=== PATIENT | male | born 1990 | race Caucasian/White ===

== ENCOUNTER 2017-01-05 16:22 | Emergency (ER) | payer OTHER ==
[~2017-01-05] VITALS: Ht 172.7 cm; Wt 117.3 kg
[~2017-01-05 16:22] MED LIST: PANT40TA2 PO
[2017-01-05 16:25] VITALS: TEMP 36.4; Ht 172.7 cm; Wt 117.3 kg
[2017-01-05] MEDS ORDERED: ZLF/100 PO (16:31)
[2017-01-05] MEDS ORDERED: LORAZEPAM 0.5 MG TAB PO STA (16:47)
[2017-01-05] MEDS ORDERED: SODIUM CHLORIDE 0.9% 1000ML 1,000 ML IV STA (16:47)
[2017-01-05 17:07] LABS: BASO % 0.2 %; BASO ABS # 0.02 K/uL (0-0.2); COMPLETE YES; EOS % 1.2 %; HEMATOCRIT 45.6 % (42-52); IG% 0.3 %; LYMPH % 23.1 %; MEAN CELL VOLUME 83.7 fL (80-100); MEAN CORPUSCULAR HEMOGLOBIN 30.6 pg (25-34); MEAN CORPUSCULAR HGB CONC 36.6 g/dl (32-36); MEAN PLATELET VOLUME 11.4 fL (7.4-10.4); MONO % 5.9 %; NEUT % 69.3 %; PLATELET COUNT 235 K/uL (130-400); RED BLOOD COUNT 5.45 M/uL (4.7-6.1); WHITE BLOOD COUNT 12.96 K/uL (4.8-10.8)
--- NOTE | 2017-01-05 17:12 | EMERGENCY ROOM VISIT NOTE ---
History First contact with patient: 16:28 Chief Complaint: DIZZY Stated Complaint: light headed, dizzy, head pressure History of Present Illness The patient is a 26 year old male who presents to the Emergency Room with complaints of lightheadedness. The patient states that he restarted Zoloft 2 weeks ago due to increasing anxiety. He has taken this medication in the past. He states he took 50 mg for 1 week and then began 100 mg daily. He states that he "does not feel like himself." He reports feeling lightheaded, dizzy, and has tingling in his hands. He reports a pressure in his face and is concerned about a dental infection. He does admit to chewing tobacco. He states that he drinks several bottles of water every day and does not believe that he could be dehydrated. He states that he has occasionally had shortness of breath but has attributed this to his anxiety. He denies having these symptoms when taking Zoloft previously. He does have a prescription for lorazepam to take as needed for anxiety, but has not used this. He denies any neck pain, headache, fevers or chest pain, nausea, vomiting or abdominal pain. Review of Systems A complete 10 point review of systems was reviewed with the patient with pertinent positives and negatives as per history of present illness. All else were negative. Past Medical/Surgical History Medical Problems: (1) Chronic knee pain (2) Chronic shoulder pain (3) Duodenitis (4) History of anxiety (5) History of duodenal ulcer (6) History of gastritis (7) History of GI bleed (8) Speech impediment Surgical Problems: (1) H/O esophagogastroduodenoscopy (2) Hx of appendectomy Family History Diabetes mellitus GRANDMOTHER Hypertension GRANDMOTHER Social History Smoking Status: Current Some Day Smoker Alcohol Use: none Drug Use: none Marital Status: single Housing Status: lives with family Occupation Status: employed Current/Historical Medications Scheduled Pantoprazole (Protonix), 40 MG PO DAILY Sertraline HCl (Sertraline HCl), 100 MG PO DAILY Scheduled PRN Lorazepam (Ativan), 0.5 MG PO DAILY PRN for Anxiety Allergies Coded Allergies: Bacitracin (Verified Allergy, Unknown, Rash, 01/05/17) Neomycin (Verified Allergy, Unknown, Rash, 01/05/17) Polymyxin B (Verified Allergy, Unknown, Rash, 01/05/17) Physical Exam Vital Signs Date Time Temp Pulse Resp B/P (MAP) Pulse Ox O2 Delivery O2 Flow Rate FiO2 01/05/17 20:19 71 18 151/96 96 Room Air 01/05/17 19:00 75 16 127/70 97 Room Air 01/05/17 17:26 64 01/05/17 17:11 58 147/66 81 131/74 75 126/77 01/05/17 16:25 36.4 81 18 151/90 96 Room Air Physical Exam VITALS: Vitals are noted on the nurse's note and reviewed by myself. Vital signs stable. GENERAL: This is a 26-year-old male, in no acute distress, nondiaphoretic, well- developed well-nourished. SKIN: The skin was without rashes. HEAD: Normocephalic atraumatic. EARS: External auditory canals clear, tympanic membranes pearly uddley without erythema or effusion bilaterally. EYES: Pupils equal round and reactive to light and accommodation. Conjunctivae without injection, sclerae without icterus. Extraocular movements intact. NOSE: Patent, turbinates without inflammation or discharge. No sinus tenderness. MOUTH: Mucous membranes moist. The left lower gums appear to be mildly inflamed. NECK: Supple without nuchal rigidity. No lymphadenopathy. HEART: Regular rate and rhythm without murmurs gallops or rubs. LUNGS: Clear to auscultation bilaterally without wheezes, rales or rhonchi. MUSCULOSKELETAL: Full range of motion throughout. Normal gait. Strength 5/5 throughout. NEURO: Patient was alert and oriented to person place and time. Normal sensation to light and sharp touch. Deep tendon reflexes 2+ throughout. No focal neurological deficits. Normal finger to nose testing. Negative Romberg and pronator drift. Medical Decision & Procedures ER Provider Diagnostic Interpretation: CHEST ONE VIEW PORTABLE FINDINGS: Lung volumes are normal. There is no pneumothorax or pleural effusion. There is no evidence of pulmonary edema. Cardiac size is normal. Mediastinal contours are normal. A 1.4 cm nodular left midlung opacity is noted. Left basilar linear opacity favors atelectasis. IMPRESSION: 1.4 cm nodular left midlung opacity. This may reflect airspace disease, artifact or a pulmonary nodule. Follow-up PA and lateral radiographs of the chest in one month are recommended to ensure resolution. MRI OF THE BRAIN WITHOUT AND WITH IV CONTRAST FINDINGS: There are no areas of restricted diffusion. No acute intracranial hemorrhage, midline shift or mass effect is present. Brain volume is normal. Ventricular system is normal. Basilar cisterns are patent. Flow-voids for the major intracranial vessels are present. There are no intracranial masses or areas of pathologic enhancement. No areas of signal abnormality are present. Orbits and sinuses are unremarkable. Calvarial signal is normal. IMPRESSION: Normal MRI of the brain. MRA OF THE INTRACRANIAL CIRCULATION WITHOUT CONTRAST FINDINGS: The bilateral M1, M2, A1 and A2 segments are patent. There is no abrupt vessel cut off. There is no intracranial aneurysm. Posterior circulation is also intact. The appearance is unchanged since prior exam. IMPRESSION: Normal MRA of the intracranial circulation. Laboratory Results 01/05/17 17:00 Red Blood Count 5.45, Mean Corpuscular Volume 83.7, Mean Corpuscular Hemoglobin 30.6, Mean Corpuscular Hemoglobin Concent 36.6, Mean Platelet Volume 11.4, Neutrophils (%) (Auto) 69.3, Lymphocytes (%) (Auto) 23.1, Monocytes (%) (Auto) 5.9, Eosinophils (%) (Auto) 1.2, Basophils (%) (Auto) 0.2, Neutrophils # (Auto) 8.97, Lymphocytes # (Auto) 3.00, Monocytes # (Auto) 0.77, Eosinophils # (Auto) 0.16, Basophils # (Auto) 0.02 01/05/17 17:00 Test 01/05/17 17:00 White Blood Count 12.96 K/uL (4.8-10.8) Red Blood Count 5.45 M/uL (4.7-6.1) Hemoglobin 16.7 g/dL (14.0-18.0) Hematocrit 45.6 % (42-52) Mean Corpuscular Volume 83.7 fL (80-100) Mean Corpuscular Hemoglobin 30.6 pg (25-34) Mean Corpuscular Hemoglobin Concent 36.6 g/dl (32-36) Platelet Count 235 K/uL (130-400) Mean Platelet Volume 11.4 fL (7.4-10.4) Neutrophils (%) (Auto) 69.3 % Lymphocytes (%) (Auto) 23.1 % Monocytes (%) (Auto) 5.9 % Eosinophils (%) (Auto) 1.2 % Basophils (%) (Auto) 0.2 % Neutrophils # (Auto) 8.97 K/uL (1.4-6.5) Lymphocytes # (Auto) 3.00 K/uL (1.2-3.4) Monocytes # (Auto) 0.77 K/uL (0.11-0.59) Eosinophils # (Auto) 0.16 K/uL (0-0.5) Basophils # (Auto) 0.02 K/uL (0-0.2) RDW Standard Deviation 37.1 fL (36.4-46.3) RDW Coefficient of Variation 12.3 % (11.5-14.5) Immature Granulocyte % (Auto) 0.3 % Immature Granulocyte # (Auto) 0.04 K/uL (0.00-0.02) D-Dimer < 190 ug/L FEU (0-500) Anion Gap 12.0 mmol/L (3-11) Est Creatinine Clear Calc Drug Dose 114.0 ml/min Estimated GFR () 94.8 Estimated GFR (Non- 81.8 BUN/Creatinine Ratio 16.6 (10-20) Calcium Level 9.4 mg/dl (8.5-10.1) Magnesium Level 2.2 mg/dl (1.8-2.4) Total Bilirubin 3.6 mg/dl (0.2-1) Direct Bilirubin 0.3 mg/dl (0-0.2) Aspartate Amino Transf (AST/SGOT) 22 U/L (15-37) Alanine Aminotransferase (ALT/SGPT) 52 U/L (12-78) Alkaline Phosphatase 68 U/L (45-117) Total Protein 7.9 gm/dl (6.4-8.2) Albumin 5.1 gm/dl (3.4-5.0) Thyroid Stimulating Hormone (TSH) 1.520 uIu/ml (0.300-4.500) Urine Opiates Screen NEG (NEG) Urine Methadone, Qualitative NEG (NEG) Urine Barbiturates NEG (NEG) Urine Phencyclidine (PCP) Level NEG (NEG) Ur Amphetamine/Methamphetamine NEG (NEG) MDMA (Ecstasy) Screen NEG (NEG) Urine Benzodiazepines Screen NEG (NEG) Urine Cocaine Metabolite NEG (NEG) Urine Marijuana (THC) POS (NEG) Medications Administered Medications (Trade) Dose Ordered Sig/Eliseo Route Start Time Stop Time Status Last Admin Dose Admin Sodium Chloride 1,000 ml @ 999 mls/hr Q1H1M STAT IV 01/05/17 16:47 01/05/17 17:47 DC 01/05/17 16:47 999 MLS/HR Lorazepam (Ativan Tab) 0.5 mg NOW STAT PO 01/05/17 16:47 01/05/17 16:49 DC 01/05/17 17:27 0.5 MG ECG Rate (beats per minute): 68 Rhythm: normal sinus Findings: no acute ischemic change, no ectopy Change: no significant change ED Course The patient was evaluated as above. Labs were drawn and IV access was obtained. Patient was medicated with 1 liter NSS and 0.5 mg lorazepam orally. Patient was reevaluated and findings were discussed. Case was discussed with Dr. Almeida and decision to order MRI/MRA was made. Discharge instructions were reviewed with the patient. The patient verbalized understanding of my assessment and treatment plan and was discharged home in good condition. Medical Decision Differential diagnosis includes adverse reaction to medication, anxiety, CVA, malignancy, infection, electrolyte abnormality, orthostatic hypotension, among others. The patient is a 26-year-old male who presents today with vague complaints of dizziness. The patient seems to be describing lightheadedness rather than true vertigo. He does state that the onset of symptoms coincides with restarting Zoloft for anxiety. Labs revealed a mild leukocytosis. No concerning anemia or electrolyte abnormality. Bilirubin is elevated at 3.6. The etiology of this is unclear. EKG showed a normal sinus rhythm, unchanged from a previous EKG. The patient's orthostatic vital signs were mildly positive. BUN was also slightly elevated. The patient may be dehydrated. The patient was also evaluated by Dr. Almeida, ED attending physician. Due to some difficulty with HINTS exam, decision was made to perform MRI and MRA. These were performed and were read by radiology with no acute findings. I'm unsure of the cause of the patient's symptoms. While he has taken Zoloft in the past, he certainly could have developed an adverse reaction to the medication. He will need close follow -up with his primary care provider for possible medication changes and further evaluation. Based on the patient's presentation and work up, I feel the patient is stable for outpatient treatment. The patient was educated to return to the emergency department for any worsening of their current condition or new/concerning symptoms. He will follow up with his PCP. Medication reconciliation: I attest that I have personally reviewed the patient 's current medication list. Blood pressure screening: Patient was found to have an elevated blood pressure and was referred to their primary care provider for recheck and further treatment. Impression Primary Impression: Dizziness Departure Information Dispostion Home / Self-Care Condition GOOD Referrals Jerel Wayne M.D. (PCP) Patient Instructions My [facility] Additional Instructions MRI of your brain was normal today. Your bilirubin level was elevated. The cause of this is unclear, but you should have it rechecked by your family doctor. Rest and stay well hydrated. Follow-up with your primary care provider within 48 hours for further evaluation and possible medication adjustments. Return to the emergency department with any new/concerning or worsening symptoms.
--- NOTE | 2017-01-05 17:14 | DIAGNOSTIC IMAGING REPORT ---
CHEST ONE VIEW PORTABLE CLINICAL HISTORY: Lightheaded. Dizzy. COMPARISON STUDY: Chest radiograph February 06, 2015. FINDINGS: Lung volumes are normal. There is no pneumothorax or pleural effusion. There is no evidence of pulmonary edema. Cardiac size is normal. Mediastinal contours are normal. A 1.4 cm nodular left midlung opacity is noted. Left basilar linear opacity favors atelectasis. IMPRESSION: 1.4 cm nodular left midlung opacity. This may reflect airspace disease, artifact or a pulmonary nodule. Follow-up PA and lateral radiographs of the chest in one month are recommended to ensure resolution. Electronically signed by: Shay Yanez M.D. 01/05/2017 5:13 PM Dictated Date/Time: 01/05/2017 5:12 PM
[2017-01-05 17:25] LABS: BUN/CREATININE RATIO 16.6 (10-20); CALCIUM 9.4 mg/dl (8.5-10.1); CREATININE 1.2 mg/dl (0.60-1.40); MAGNESIUM 2.2 mg/dl (1.8-2.4); POTASSIUM 3.8 mmol/L (3.5-5.1)
[2017-01-05 17:36] LABS: THYROID STIMULATING HORMONE 1.52 uIu/ml (0.300-4.500)
[2017-01-05 17:56] LABS: BENZODIAZEPINE, URINE NEG (NEG); COCAINE,URINE NEG (NEG); PHENCYCLIDINE, URINE NEG (NEG)
[2017-01-05] MEDS ORDERED: LORA-741 PO (17:56)
[2017-01-05] MEDS ORDERED: PANT40TA PO (17:56)
--- NOTE | 2017-01-05 19:53 | EMERGENCY ROOM VISIT NOTE ---
ED Visit Note First contact with patient: 16:28 Patient is slightly discussed with physician web production assistant and reviewed evaluation and results of far. I then performed my own bedside interview and examine the patient. Patient with atypical dizziness/lightheadedness, timing suggestive of possible medication adverse reaction, although patient was taken the medication previously without any adverse side effects. No other symptoms to suggest occult infectious process, no recent trauma, labs otherwise reassuring, patient with no other risk factors for heart disease, although there is some family history according to significant other bedside. Patient with nonfocal bedside neuro exam, however had difficulty with hints exam. Given atypical symptoms and equivocal hints exam with worsening sense of lightheadedness during testing , discussed with physician web production assistant neuro imaging.
[2017-01-05] MEDS ORDERED: GADAVIST IV PRN (20:00)
--- NOTE | 2017-01-05 20:07 | DIAGNOSTIC IMAGING REPORT ---
MRI OF THE BRAIN WITHOUT AND WITH IV CONTRAST CLINICAL HISTORY: Head pressure. Dizziness. COMPARISON STUDY: Head CT May 26, 2015. TECHNIQUE: Utilizing a 1.5 Maida magnet and dedicated coil, multiplanar, multiecho imaging of the brain was performed pre and postcontrast administration. IV administration of 11 mL of Gadavist contrast was uneventful. FINDINGS: There are no areas of restricted diffusion. No acute intracranial hemorrhage, midline shift or mass effect is present. Brain volume is normal. Ventricular system is normal. Basilar cisterns are patent. Flow-voids for the major intracranial vessels are present. There are no intracranial masses or areas of pathologic enhancement. No areas of signal abnormality are present. Orbits and sinuses are unremarkable. Calvarial signal is normal. IMPRESSION: Normal MRI of the brain. Electronically signed by: Shay Yanez M.D. 01/05/2017 8:06 PM Dictated Date/Time: 01/05/2017 8:02 PM
--- NOTE | 2017-01-05 20:12 | DIAGNOSTIC IMAGING REPORT ---
MRA OF THE INTRACRANIAL CIRCULATION WITHOUT CONTRAST CLINICAL HISTORY: Head pressure, dizziness. COMPARISON STUDY: MRA of the intracranial circulation June 01, 2015. TECHNIQUE: Utilizing a 1.5 Maida magnet and 3-D [id number] technique, unenhanced MRA of the intracranial circulation was obtained. FINDINGS: The bilateral M1, M2, A1 and A2 segments are patent. There is no abrupt vessel cut off. There is no intracranial aneurysm. Posterior circulation is also intact. The appearance is unchanged since prior exam. IMPRESSION: Normal MRA of the intracranial circulation. Electronically signed by: Shay Yanez M.D. 01/05/2017 8:11 PM Dictated Date/Time: 01/05/2017 8:09 PM
[2017-01-05 20:19] VITALS: BP 151/96; PULSE 71; O2SAT 96
== END 2017-01-05 20:33 | disposition home or self-care (01) ==
LOC: C.EDB 16:24 → C.EDC 20:33
DX: R42 Dizziness and giddiness (principal); G89.29 Other chronic pain; F41.9 Anxiety disorder, unspecified; K29.70 Gastritis, unspecified, without bleeding; K26.9 Duodenal ulcer, unspecified as acute or chronic, without hemorrhage or perforation; Z83.3 Family history of diabetes mellitus; Z82.49 Family history of ischemic heart disease and other diseases of the circulatory system; F17.210 Nicotine dependence, cigarettes, uncomplicated; Z79.899 Other long term (current) drug therapy

== ENCOUNTER 2017-02-07 22:16 | Emergency (ER) | payer OTHER ==
[~2017-02-07] VITALS: Ht 172.7 cm; Wt 117.6 kg
[~2017-02-07 22:16] MED LIST changes: +LORA-741 PO; +PANT40TA PO; -PANT40TA2 PO; +ZLF/100 PO
[2017-02-07 22:19] VITALS: BP 155/104; TEMP 36.7; O2SAT 99; Ht 172.7 cm; Wt 117.6 kg
[2017-02-07 22:25] VITALS: O2SAT 97
[2017-02-07 22:35] VITALS: PULSE 84
[2017-02-07] MEDS ORDERED: SERT50TA PO (22:40)
[2017-02-07 22:49] LABS: BASO % 0.3 %; BASO ABS # 0.03 K/uL (0-0.2); COMPLETE YES; HEMATOCRIT 45.8 % (42-52); IG% 0.4 %; LYMPH % 34.8 %; LYMPH ABS # 4.06 K/uL (1.2-3.4); MEAN CELL VOLUME 84.3 fL (80-100); MEAN CORPUSCULAR HGB CONC 35.6 g/dl (32-36); MEAN PLATELET VOLUME 11.5 fL (7.4-10.4); MONO % 6.3 %; NEUT % 57.2 %; PLATELET COUNT 226 K/uL (130-400); RED BLOOD COUNT 5.43 M/uL (4.7-6.1); WHITE BLOOD COUNT 11.67 K/uL (4.8-10.8)
[2017-02-07 23:03] LABS: BLOOD UREA NITROGEN 16 mg/dl (7-18); BUN/CREATININE RATIO 16.2 (10-20); CALCIUM 9.7 mg/dl (8.5-10.1); CARBON DIOXIDE 24 mmol/L (21-32); CHLORIDE 108 mmol/L (98-107); GLUCOSE 89 mg/dl (70-99); SODIUM 141 mmol/L (136-145)
[2017-02-07 23:17] LABS: CKMB/CK RATIO 0.3 (0-3.0); POTASSIUM 3.9 mmol/L (3.5-5.1)
[2017-02-08] MEDS ORDERED: KETOROLAC TROMETHAMINE 30 MG/ML VIAL IV STA (00:03)
--- NOTE | 2017-02-08 01:30 | EMERGENCY ROOM VISIT NOTE ---
History Report prepared by Scribe: Rakel Crain Under the Supervision of: Dr. Robbin Conner D.O. First contact with patient: 22:26 Chief Complaint: CHEST PAIN Stated Complaint: CHEST PAIN History of Present Illness The patient is a 26 year old male who presents to the Emergency Room with complaints of persistent chest pain for the past 2 months. He admits to increasing anxiety for the past 4 to 6 weeks. He states he thought his chest pain was related to his anxiety, but even though he is on medication for the anxiety, his pain has persisted. He rates his discomfort as a 7/10. Deep inspiration and exertion worsens his discomfort. The patient denies any hemoptysis, recent travel or recent surgeries. He does use chew tobacco every day and states he smokes when he does not have chew. He denies any previous cardiac history or family history of NE's under the age of 55. The patient denies any headache, change in vision, fevers, shortness of breath, nausea, vomiting, diarrhea, pain with urination, and melena. The patient does note he was seen here in the ED approximately 2 weeks ago for the same symptoms. His X- Ray showed a lung nodule, so he called his doctors office, and a CT scan was ordered. He states he has not heard back yet about the results of the CT scan. 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 A total of 10 systems reviewed and were otherwise negative. Past Medical & Surgical Medical Problems: (1) Chronic knee pain (2) Chronic shoulder pain (3) Duodenitis (4) History of anxiety (5) History of duodenal ulcer (6) History of gastritis (7) History of GI bleed (8) Speech impediment Surgical Problems: (1) H/O esophagogastroduodenoscopy (2) Hx of appendectomy Family History Diabetes mellitus GRANDMOTHER Hypertension GRANDMOTHER Social History Smoking Status: Current Some Day Smoker Alcohol Use: none Drug Use: none Marital Status: single Housing Status: lives with family Occupation Status: employed Current/Historical Medications Scheduled Pantoprazole (Protonix), 40 MG PO DAILY Sertraline (Zoloft), 50 MG PO DAILY Scheduled PRN Lorazepam (Ativan), 0.5 MG PO DAILY PRN for Anxiety Allergies Coded Allergies: Bacitracin (Verified Allergy, Unknown, Rash, 01/05/17) Neomycin (Verified Allergy, Unknown, Rash, 01/05/17) Polymyxin B (Verified Allergy, Unknown, Rash, 01/05/17) Physical Exam Vital Signs Date Time Temp Pulse Resp B/P (MAP) Pulse Ox O2 Delivery O2 Flow Rate FiO2 02/07/17 22:38 97 Room Air 02/07/17 22:35 84 02/07/17 22:25 97 Room Air 02/07/17 22:19 36.7 77 20 155/104 99 Room Air Physical Exam GENERAL: Patient is sitting up in bed, alert, well appearing, well nourished, no distress, non-toxic EYE EXAM: normal conjunctiva OROPHARYNX: no exudate, no erythema, lips, buccal mucosa, and tongue normal and mucous membranes are moist NECK: supple, no nuchal rigidity, no adenopathy, non-tender LUNGS: Clear to auscultation. Normal chest wall mechanics HEART: no murmurs, S1 normal and S2 normal CHEST: Acute reproducible anterior chest wall pain. ABDOMEN: abdomen soft, non-tender, normo-active bowel sounds, no masses, no rebound or guarding. BACK: Back is symmetrical on inspection and there is no deformity, no midline tenderness, no CVA tenderness. SKIN: no rashes and no bruising UPPER EXTREMITIES: Radial pulses equal bilaterally. Upper extremities are grossly normal. LOWER EXTREMITIES: Calves are equal bilaterally. No pitting edema. NEURO EXAM: Normal sensorium, cranial nerves II-XII grossly intact, normal speech, no gross weakness of arms, no gross weakness of legs. Gross sensation intact. Medical Decision & Procedures ER Provider Diagnostic Interpretation: Radiology results as stated below per my review and interpretation: CHEST X-RAY, PORTABLE, 1 VIEW No focal infiltrate, no pneumothorax and normal cardiac silhouette. Laboratory Results 02/07/17 22:30 Red Blood Count 5.43, Mean Corpuscular Volume 84.3, Mean Corpuscular Hemoglobin 30.0, Mean Corpuscular Hemoglobin Concent 35.6, Mean Platelet Volume 11.5, Neutrophils (%) (Auto) 57.2, Lymphocytes (%) (Auto) 34.8, Monocytes (%) (Auto) 6.3, Eosinophils (%) (Auto) 1.0, Basophils (%) (Auto) 0.3, Neutrophils # (Auto) 6.68, Lymphocytes # (Auto) 4.06, Monocytes # (Auto) 0.73, Eosinophils # (Auto) 0.12, Basophils # (Auto) 0.03 02/07/17 22:30 Test 02/07/17 22:30 White Blood Count 11.67 K/uL (4.8-10.8) Red Blood Count 5.43 M/uL (4.7-6.1) Hemoglobin 16.3 g/dL (14.0-18.0) Hematocrit 45.8 % (42-52) Mean Corpuscular Volume 84.3 fL (80-100) Mean Corpuscular Hemoglobin 30.0 pg (25-34) Mean Corpuscular Hemoglobin Concent 35.6 g/dl (32-36) Platelet Count 226 K/uL (130-400) Mean Platelet Volume 11.5 fL (7.4-10.4) Neutrophils (%) (Auto) 57.2 % Lymphocytes (%) (Auto) 34.8 % Monocytes (%) (Auto) 6.3 % Eosinophils (%) (Auto) 1.0 % Basophils (%) (Auto) 0.3 % Neutrophils # (Auto) 6.68 K/uL (1.4-6.5) Lymphocytes # (Auto) 4.06 K/uL (1.2-3.4) Monocytes # (Auto) 0.73 K/uL (0.11-0.59) Eosinophils # (Auto) 0.12 K/uL (0-0.5) Basophils # (Auto) 0.03 K/uL (0-0.2) RDW Standard Deviation 37.9 fL (36.4-46.3) RDW Coefficient of Variation 12.5 % (11.5-14.5) Immature Granulocyte % (Auto) 0.4 % Immature Granulocyte # (Auto) 0.05 K/uL (0.00-0.02) D-Dimer < 190 ug/L FEU (0-500) Anion Gap 9.0 mmol/L (3-11) Est Creatinine Clear Calc Drug Dose 137.0 ml/min Estimated GFR () 118.2 Estimated GFR (Non- 102.0 BUN/Creatinine Ratio 16.2 (10-20) Calcium Level 9.7 mg/dl (8.5-10.1) Total Creatine Kinase 172 U/L (39-308) Creatine Kinase MB 0.6 ng/ml (0.5-3.6) Creatine Kinase MB Ratio 0.3 (0-3.0) Troponin I < 0.015 ng/ml (0-0.045) Chemistry Specimen Hemolysis Laboratory results per my review. Medications Administered Medications (Trade) Dose Ordered Sig/Eliseo Route Start Time Stop Time Status Last Admin Dose Admin Ketorolac Tromethamine (Toradol Inj) 30 mg NOW STAT IV 02/08/17 00:03 02/08/17 00:04 DC 02/08/17 00:03 30 MG ECG Indication: chest pain Rate (beats per minute): 75 Rhythm: sinus rhythm Findings: no ectopy, other (normal intervals) ED Course ED COURSE: Vital signs were reviewed and showed the patient is hypertensive. The patients medical record was reviewed The above diagnostic studies were performed and reviewed. ED treatments and interventions as stated above. 2232: The patient was evaluated in room A3. A complete history and physical examination was performed. 0000: Upon reevaluation, the patient is feeling better. I discussed my findings with the patient and he understands and agrees with the treatment plan. 0003: Toradol 30 mg IV. Based on the patients age, coexisting illnesses, exam and lab findings the decision to treat as an outpatient was made. The patient remained stable while under my care. The patient appeared well at the time of discharge. [The patient will be evaluated for further management.] Medical Decision Medication Reconciliation: I attest that I have personally reviewed the patient' s current medication list. Blood pressure screening: Patient was found to have an elevated blood pressure and was referred to their primary doctor for recheck and further treatment. Differential diagnoses includes but is not limited to acute coronary syndrome, myocardial infarction, pericarditis, pulmonary embolus, aortic dissection, pneumonia, pneumothorax, musculoskeletal, shingles, esophageal. Patient is a 26-year-old male who presents the ER for chest pain which has been present since late October early May been fairly persistent. It is worse with deep breath. Exertion slightly improves the pain. Patient has no PE risk factors with the exception of travel. Denies any history of hypertension, hyperlipidemia, diabetes, some deafness family and age or CAD. EKG was unremarkable. Troponin was negative with chest pain greater than 8 hours. D- dimer was negative. X-ray shows no acute pathology. His pain is clearly pleuritic in nature. Patient was given Toradol and recommended to take Motrin/ Tylenol as needed and follow-up with his PCP. Discussed with Pt concerning signs and symptoms to watch out for. Pt was instructed to follow up with their PCP and discussed with the patient their option to return to the ED at anytime for persistent or worsening symptoms. The appropriate anticipatory guidance and out-patient management, including indications for return to the emergency department, were explained at length to the patient and understood. Impression Primary Impression: Precordial chest pain Scribe Attestation The scribe's documentation has been prepared under my direction and personally reviewed by me in its entirety. I confirm that the note above accurately reflects all work, treatment, procedures, and medical decision making performed by me. Departure Information Dispostion Home / Self-Care Referrals No Doctor, Assigned (PCP) Patient Instructions Chest Pain - [facility], My [facility] Additional Instructions Please follow up with your primary care doctor with in the next 24 hours. Any worsening of your symptoms, please return to the ED immediately. This includes new or worsening chest pain, shortness breath, passing out, coughing up blood, or any other concerning signs or symptoms from your standpoint. Please take Motrin or Tylenol as needed for your pain.
--- NOTE | 2017-02-08 05:44 | DIAGNOSTIC IMAGING REPORT ---
CHEST ONE VIEW PORTABLE CLINICAL HISTORY: Chest Pain pain COMPARISON STUDY: 01/05/2017 FINDINGS: The bones soft tissues and hemidiaphragms are normal. The cardiomediastinal silhouette is normal. The lungs are clear. The pulmonary vasculature is normal. IMPRESSION: Negative chest. The nodular density previously described left midlung appears to have resolved The above report was generated using voice recognition software. It may contain grammatical, syntax or spelling errors. Electronically signed by: Ivan Broderick M.D. 02/08/2017 5:42 AM Dictated Date/Time: 02/08/2017 5:42 AM
== END 2017-02-08 00:20 | disposition home or self-care (01) ==
LOC: C.EDB 22:17 → C.EDA 02-08 00:20
DX: R07.2 Precordial pain (principal); F41.9 Anxiety disorder, unspecified; F17.220 Nicotine dependence, chewing tobacco, uncomplicated; F17.210 Nicotine dependence, cigarettes, uncomplicated; G89.29 Other chronic pain; M25.569 Pain in unspecified knee; M25.519 Pain in unspecified shoulder; R47.9 Unspecified speech disturbances; Z83.3 Family history of diabetes mellitus; Z82.49 Family history of ischemic heart disease and other diseases of the circulatory system; Z79.899 Other long term (current) drug therapy; R03.0 Elevated blood-pressure reading, without diagnosis of hypertension

== ENCOUNTER 2017-09-01 13:04 | Emergency (ER) | payer OTHER ==
[~2017-09-01 13:04] MED LIST changes: +SERT50TA PO; -ZLF/100 PO
== END 2017-09-01 13:23 | disposition left against medical advice (07) ==
LOC: C.EDB 13:05
DX: Z53.21 Procedure and treatment not carried out due to patient leaving prior to being seen by health care provider (principal)

== ENCOUNTER 2017-09-01 16:05 | Inpatient (IN) | payer OTHER ==
[~2017-09-01] VITALS: Ht 172.7 cm; Wt 104.6 kg
--- NOTE | 2017-09-01 16:49 | DIAGNOSTIC IMAGING REPORT ---
CHEST ONE VIEW PORTABLE CLINICAL HISTORY: Mood Disorder COMPARISON STUDY: 02/07/2017 FINDINGS: The cardiac and mediastinal contours are normal. There is no evidence of focal pulmonary consolidation. There is no evidence of failure. No pleural effusions are visualized.[ IMPRESSION: No active disease in the chest. Electronically signed by: Moy Stinson M.D. 09/01/2017 4:48 PM Dictated Date/Time: 09/01/2017 4:48 PM
[2017-09-01 16:55] LABS: BASO % 0.1 %; BASO ABS # 0.01 K/uL (0-0.2); EOS % 0.7 %; EOS ABS # 0.07 K/uL (0-0.5); HEMATOCRIT 47.5 % (42-52); HEMOGLOBIN 17.2 g/dL (14.0-18.0); IG# 0.03 K/uL (0.00-0.02); LYMPH % 22.7 %; LYMPH ABS # 2.23 K/uL (1.2-3.4); MEAN CELL VOLUME 85.4 fL (80-100); MEAN CORPUSCULAR HEMOGLOBIN 30.9 pg (25-34); MEAN CORPUSCULAR HGB CONC 36.2 g/dl (32-36); MEAN PLATELET VOLUME 11.6 fL (7.4-10.4); MONO % 4.8 %; MONO ABS # 0.47 K/uL (0.11-0.59); NEUT % 71.4 %; NEUT ABS # 7.03 K/uL (1.4-6.5); PLATELET COUNT 200 K/uL (130-400); RED CELL DISTRIBUTION WIDTH CV 12.5 % (11.5-14.5); RED CELL DISTRIBUTION WIDTH SD 38.8 fL (36.4-46.3); WHITE BLOOD COUNT 9.84 K/uL (4.8-10.8)
[2017-09-01 17:17] LABS: ALBUMIN 4.8 gm/dl (3.4-5.0); ALT/SGPT 41 U/L (12-78); BLOOD UREA NITROGEN 12 mg/dl (7-18); CALCIUM 9.3 mg/dl (8.5-10.1); CARBON DIOXIDE 23 mmol/L (21-32); CREATININE 0.97 mg/dl (0.60-1.40); GLUCOSE 89 mg/dl (70-99); POTASSIUM 3.5 mmol/L (3.5-5.1); SODIUM 139 mmol/L (136-145)
[2017-09-01 17:28] LABS: ALKALINE PHOSPHATASE 66 U/L (45-117); AST/SGOT 17 U/L (15-37); TOTAL PROTEIN 8.1 gm/dl (6.4-8.2)
--- NOTE | 2017-09-01 20:19 | EMERGENCY ROOM VISIT NOTE ---
History Report prepared by Keiko: Elpidio Grant Under the Supervision of: Dr. Robbin Conner D.O. First contact with patient: 16:16 Chief Complaint: MENTAL HEALTH EVALUATION Stated Complaint: MHID History of Present Illness The patient is a 27 year old male who presents to the Emergency Room with complaints of constant suicidal ideation beginning " a long time" ago. He has a history of anxiety, depression and PTSD. He is not on any psychiatric medication currently, but [facility] The patient arrived at the ED earlier today for similar symptoms, but eventually left due to a long wait and went to the [facility]. The [facility] then sent the patient back to the ED via ambulance. The patient reports that he has felt very easily angered recently, and has had thoughts of self harm. He has no specific plan to harm himself or harm others, though he states that he would not admit if he had a plan, and "would just go do it". He feels that his symptoms are coming from stress at work, and stress at home. The patient notes that he lost his job recently. He is afraid people are going to take his guns as well. The patient states "I don't want to be around anymore". He states "I don't have anything to live for, other than my and kid". He states "I appreciate life , but sometimes I have those moments where I wonder why I'm here". The patient denies visual or auditory hallucinations. He states that he has had racing thoughts recently, and has an odd compulsion to speak them out loud to himself. He has a history of chronic intermittent chest "tightness", and states that it has been worked up extensively, but states that it has been unchanged recently. The patient denies any abdominal pain, back pain, or headache. Source of History: patient Onset: "a long time" ago Quality: other (suicidal ideation) Timing: constant Associated Symptoms: No headache, No abdominal pain, No back pain Review of Systems See HPI for pertinent positives & negatives. A total of 10 systems reviewed and were otherwise negative. Past Medical & Surgical Medical Problems: (1) Chronic knee pain (2) Chronic shoulder pain (3) Duodenitis (4) History of anxiety (5) History of duodenal ulcer (6) History of gastritis (7) History of GI bleed (8) Speech impediment Surgical Problems: (1) H/O esophagogastroduodenoscopy (2) Hx of appendectomy Family History Diabetes mellitus GRANDMOTHER Hypertension GRANDMOTHER Social History Smoking Status: Current Some Day Smoker Alcohol Use: none Drug Use: none Marital Status: single Housing Status: lives with family Occupation Status: employed Current/Historical Medications No Active Prescriptions or Reported Meds Allergies Coded Allergies: Bacitracin (Verified Allergy, Unknown, Rash, 09/01/17) Neomycin (Verified Allergy, Unknown, Rash, 09/01/17) Polymyxin B (Verified Allergy, Unknown, Rash, 09/01/17) Physical Exam Vital Signs Date Time Temp Pulse Resp B/P (MAP) Pulse Ox O2 Delivery O2 Flow Rate FiO2 09/02/17 00:46 97 20 167/92 98 Room Air 09/02/17 00:12 117 18 174/140 98 Room Air 09/01/17 20:19 79 20 99 Room Air 09/01/17 16:35 36.8 82 165/107 98 Room Air Physical Exam GENERAL: Sitting up in bed, alert, no distress, non-toxic, anxious EYE EXAM: normal conjunctiva. OROPHARYNX: no exudate, no erythema, lips, buccal mucosa, and tongue normal and mucous membranes are moist NECK: supple, no nuchal rigidity, no adenopathy, non-tender LUNGS: Clear to auscultation. Normal chest wall mechanics HEART: no murmurs, S1 normal and S2 normal ABDOMEN: abdomen soft, non-tender, normo-active bowel sounds, no masses, no rebound or guarding. BACK: Back is symmetrical on inspection and there is no deformity, no midline tenderness, no CVA tenderness. SKIN: no rashes and no bruising UPPER EXTREMITIES: upper extremities are grossly normal. LOWER EXTREMITIES: Calves are equal bilaterally. NEURO EXAM: Normal sensorium, cranial nerves II-XII grossly intact, normal speech, no gross weakness of arms, no gross weakness of legs. PSYCH: Admits to suicidal thoughts. Tangential and racing thoughts. Admits that he would never admit to a plan of killing himself. Medical Decision & Procedures ER Provider Diagnostic Interpretation: Radiology results as stated below per my review and the radiologist's interpretation: CHEST ONE VIEW PORTABLE FINDINGS: The cardiac and mediastinal contours are normal. There is no evidence of focal pulmonary consolidation. There is no evidence of failure. No pleural effusions are visualized.[ IMPRESSION: No active disease in the chest. Electronically signed by: Moy Stinson M.D. 09/01/2017 4:48 PM Laboratory Results 09/01/17 16:44 Red Blood Count 5.56, Mean Corpuscular Volume 85.4, Mean Corpuscular Hemoglobin 30.9, Mean Corpuscular Hemoglobin Concent 36.2, Mean Platelet Volume 11.6, Neutrophils (%) (Auto) 71.4, Lymphocytes (%) (Auto) 22.7, Monocytes (%) (Auto) 4.8, Eosinophils (%) (Auto) 0.7, Basophils (%) (Auto) 0.1, Neutrophils # (Auto) 7.03, Lymphocytes # (Auto) 2.23, Monocytes # (Auto) 0.47, Eosinophils # (Auto) 0.07, Basophils # (Auto) 0.01 09/01/17 16:44 Test 09/01/17 16:40 09/01/17 16:44 Urine Color YELLOW Urine Appearance CLEAR (CLEAR) Urine pH 5.0 (4.5-7.5) Urine Specific [place] 1.025 (1.000-1.030) Urine Protein TRACE (NEG) Urine Glucose (UA) NEG (NEG) Urine Ketones NEG (NEG) Urine Occult Blood NEG (NEG) Urine Nitrite NEG (NEG) Urine Bilirubin NEG (NEG) Urine Urobilinogen NEG (NEG) Urine Leukocyte Esterase NEG (NEG) Urine RBC 0-4 /hpf (0-4) Urine WBC 1-5 /hpf (0-5) Urine Epithelial Cells >30 /lpf (0-5) Urine Bacteria NEG (NEG) Urine Mucus PRESENT (NONE PRSENT) Urine Opiates Screen NEG (NEG) Urine Methadone, Qualitative NEG (NEG) Urine Barbiturates NEG (NEG) Urine Phencyclidine (PCP) Level NEG (NEG) Ur Amphetamine/Methamphetamine NEG (NEG) MDMA (Ecstasy) Screen NEG (NEG) Urine Benzodiazepines Screen NEG (NEG) Urine Cocaine Metabolite NEG (NEG) Urine Marijuana (THC) POS (NEG) White Blood Count 9.84 K/uL (4.8-10.8) Red Blood Count 5.56 M/uL (4.7-6.1) Hemoglobin 17.2 g/dL (14.0-18.0) Hematocrit 47.5 % (42-52) Mean Corpuscular Volume 85.4 fL (80-100) Mean Corpuscular Hemoglobin 30.9 pg (25-34) Mean Corpuscular Hemoglobin Concent 36.2 g/dl (32-36) Platelet Count 200 K/uL (130-400) Mean Platelet Volume 11.6 fL (7.4-10.4) Neutrophils (%) (Auto) 71.4 % Lymphocytes (%) (Auto) 22.7 % Monocytes (%) (Auto) 4.8 % Eosinophils (%) (Auto) 0.7 % Basophils (%) (Auto) 0.1 % Neutrophils # (Auto) 7.03 K/uL (1.4-6.5) Lymphocytes # (Auto) 2.23 K/uL (1.2-3.4) Monocytes # (Auto) 0.47 K/uL (0.11-0.59) Eosinophils # (Auto) 0.07 K/uL (0-0.5) Basophils # (Auto) 0.01 K/uL (0-0.2) RDW Standard Deviation 38.8 fL (36.4-46.3) RDW Coefficient of Variation 12.5 % (11.5-14.5) Immature Granulocyte % (Auto) 0.3 % Immature Granulocyte # (Auto) 0.03 K/uL (0.00-0.02) Anion Gap 9.0 mmol/L (3-11) Est Creatinine Clear Calc Drug Dose 138.3 ml/min Estimated GFR () 121.8 Estimated GFR (Non- 105.1 BUN/Creatinine Ratio 12.0 (10-20) Calcium Level 9.3 mg/dl (8.5-10.1) Total Bilirubin 2.6 mg/dl (0.2-1) Direct Bilirubin 0.4 mg/dl (0-0.2) Aspartate Amino Transf (AST/SGOT) 17 U/L (15-37) Alanine Aminotransferase (ALT/SGPT) 41 U/L (12-78) Alkaline Phosphatase 66 U/L (45-117) Troponin I < 0.015 ng/ml (0-0.045) Total Protein 8.1 gm/dl (6.4-8.2) Albumin 4.8 gm/dl (3.4-5.0) Thyroid Stimulating Hormone (TSH) 2.170 uIu/ml (0.300-4.500) Ethyl Alcohol mg/dL < 3.0 mg/dl (0-3) Laboratory results per my review. Medications Administered Medications (Trade) Dose Ordered Sig/Eliseo Route Start Time Stop Time Status Last Admin Dose Admin Lorazepam (Ativan Tab) 0.5 mg NOW STAT SL 09/01/17 23:59 09/02/17 00:01 DC 09/02/17 00:11 0.5 MG ECG Indication: chest pain ((chronic)) Rate (beats per minute): 81 Rhythm: sinus rhythm Findings: no ectopy, other (Normal axis. ) ED Course ED COURSE: Vital signs were reviewed and showed hypertension The patients medical record was reviewed The above diagnostic studies were performed and reviewed. ED treatments and interventions as stated above. 1617: The patient was evaluated in room A7. A complete history and physical examination was performed. 1834: The patient has become agitated. [facility] will evaluate the patient. 0: I had a long conversation with the patient and updated him on his test results. He is medically cleared. 1950: I signed the 302 petitioning statement. A bedsearch is underway. 0026: Upon reevaluation, the patient is resting. I discussed my findings with the patient and he understands and agrees with the treatment plan. Based on the patients age, coexisting illnesses, exam and lab findings the decision to treat as an inpatient was made. The patient remained stable during his stay. The patient will be evaluated by [address] [place] [address] for further management. Medical Decision Differential diagnosis: Etiologies such as mood disorder, infection, hypoglycemia, electrolyte abnormalities, cardiac sources, intracerebral event, toxicologic, neurologic, as well as others were entertained. Patient is a 27-year-old male who presents to ER for suicidal thoughts associated with racing thoughts and on exam he appears to be tangential. He does admit that if he had a plan to kill himself he would never tell anyone else about this. CBC all BMP, LFTs, troponin and TSH was normal. Bilirubin was elevated but consistent with previous. Tox positive for marijuana. UA was negative. Chest x-ray was negative along with an unremarkable EKG with chest pain that has been present for the past several months and is unchanged. Has been worked up multiple times before in the past. I do not believe that this is cardiac based on history of present illness and work up. 302 was petitioned and signed as the patient did not want to come in on his own after he was evaluated by Nora myself felt uncomfortable discharging him with his statements. He was hypertensive. He was extremely worked up. He was given Ativan and this all improved. Patient was evaluated by 3 S. and will be admitted on a 302 for SI. Medication Reconcilliation Current Medication List: was personally reviewed by me Blood Pressure Screening Patient's blood pressure: Elevated blood pressure Blood pressure disposition: Referred to PCP Impression Primary Impression: Mood disorder Additional Impression: Suicidal thoughts Scribe Attestation The scribe's documentation has been prepared under my direction and personally reviewed by me in its entirety. I confirm that the note above accurately reflects all work, treatment, procedures, and medical decision making performed by me. Departure Information Dispostion Mental [facility] (-[facility]) Prescriptions No Active Prescriptions or Reported Meds Referrals Jerel Wayne M.D. (PCP) Patient Instructions My [facility] Problem Qualifiers
[2017-09-01] MEDS ORDERED: LORAZEPAM 0.5 MG TAB SL STA (23:59)
[2017-09-02] MEDS ORDERED: NURSING VERBAL MED ORDER ONE (01:30)
[2017-09-02 02:12] VITALS: O2SAT 100
[2017-09-02] MEDS ORDERED: hydrOXYzine HCL 25 MG TAB ONE (02:42)
[2017-09-02] MEDS ORDERED: SODIUM CHLORIDE 0.65% NA SOLN 45 ML (OCEAN) PRN (03:00)
[2017-09-02] MEDS ORDERED: MAGNESIUM HYDROXIDE SUSP 30 ML UDC PO PRN (03:00)
[2017-09-02] MEDS ORDERED: BISMUTH SUBSALICYLATE PER ML OMNICELL CHARGE PO PRN (03:00)
[2017-09-02] MEDS ORDERED: ACETAMINOPHEN 325 MG TAB PO PRN (03:00)
[2017-09-02] MEDS ORDERED: ALUMINUM/MAGNESIUM SUSP 30 ML UDC PO PRN (03:00)
[2017-09-02 06:34] VITALS: BP 152/88; PULSE 80; TEMP 36.8; Ht 172.7 cm; Wt 104.6 kg
[2017-09-02 07:00] VITALS: BP_SYST 125; BP_SYST 129; BP_DIAS 81; BP_DIAS 86; PULSE 77; PULSE 78; TEMP 36.8
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
[2017-09-02] MEDS ORDERED: ESCITALOPRAM OXALATE 10 MG TAB PO ONE (12:00)
[2017-09-02] MEDS: hydrOXYzine HCL 25 MG TAB PO PRN (21:48)
[2017-09-03 06:58] VITALS: BP_SYST 127; BP_SYST 129; BP_DIAS 76; BP_DIAS 85; PULSE 64; PULSE 71; TEMP 36.8
[2017-09-03] MEDS: ESCITALOPRAM OXALATE 10 MG TAB PO SCH (10:03)
--- NOTE | 2017-09-03 11:51 | Psychiatric Progress Notes ---
Progress Note Date of Service Sep 03, 2017. Interval History Brandan Melendez is a 27-year-old male admitted involuntarily on Sep 02, 2017 at 01 :34 after presenting to the emergency department for treatment of severe depression, anger and with suicidal ideation. He presented twice to the ER, the first time walking out before being seen, the [facility]. Chief Complaint "Great, when I vented to that ER doc yesterday, I felt great, it was a weight off". Subjective Patient was seen & assessed interval progress reviewed with Nursing. Staff report he was angry about hospitalization/302 yesterday, met with the unit nursing information systems coordinator last evening for an extended period of time to discuss his complaints, and then had a visit with his , which she said went well. They have a family meeting scheduled for this afternoon, which he had initially stated would not be productive, but later agreed to. He attended community meeting and rated his mood an 8 out of 10. 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 Today he was seen with Kevin Gilman, MS3, with his permission. He says that although he doesn't think he needs to be here, and feels that he was "betrayed" by the [facility], does think he is benefiting from treatment, stating "I know I need help." He has been going to groups, and has found them helpful, but continues to state that no one here can truly understand him, as they have not been in his position. He feels people take him too literally, and that he cannot really be himself here, as he can't talk the way that he would to his best friends. He says he had a good visit with his last night, and is hoping that he can save his marriage. He has a meeting with her today, and says he wants to be "transparent" and talk about their issues, but at the same time feels "it's none of your business." He wants to know how soon he can be discharged, as he feels "trapped" here, and thinks that he can't work on his marriage "from a pay phone." He says his mood is "great," but admits his anxiety is "through the roof." Denies suicidal thoughts. Sleep Information Total Hours of Sleep: 7.50 Meal Information Percent of Breakfast Consumed: 100 Percent of Lunch Consumed: 70 Percent of Dinner Consumed: 100 Mental Status Exam During interview pt is: alert and oriented, cooperative Appearance: appropriately dressed, appropriately groomed Eye contact is: good Motor behavior is: steady gait & station, no abnormal motor movements Speech: normal in rate, rhythm & volume Affect: anxious Mood is: anxious Thought process: goal directed Thought content: reality based without delusions Suicidal thought are: denied Homicidal thoughts are: denied Hallucinations: denies auditory, denies visual Cognition: memory grossly intact, attention grossly intact, language grossly intact Intelligence estimated to be: average Insight: limited Judgement: limited Impression 27-year-old man admitted on a 302 involuntary commitment after presenting with depression, anger and suicidal statements. He is angry about being here, but is going to groups, and admits to long-standing depression and anxiety for at least the last 5 years. He was agreeable to a second trial of an SSRI and was started on escitalopram on admission, which was increased to 10 mg today. He initially refused family meeting, stating that his already told him that the marriage is over, but then agreed and one is scheduled for this afternoon. He will [facility]. He is here involuntarily but does not meet criteria for a 303. We will continue to gather information toward the need for further inpatient treatment. At this time however, the patient requires inpatient mental health treatment due to the severity of his condition and the risk for self-harm if discharged. Plan (1) Major depressive disorder, recurrent severe without psychotic features 09/02 -Restart Lexapro 5 mg today increasing to 10 mg tomorrow - Recommend a family meeting which the patient is currently refusing - The patient is here on a 302. Continue to gather information toward the need for hospitalization - Obtain supplemental information - [facility] - Assist the patient to learn and utilize healthy coping strategies - Encourage exercise 09/03 - - Increase her citalopram to 10 mg daily, and have family meeting with his . Ar[facility] aftercare at the [facility]. (2) PTSD (post-traumatic stress disorder) 09/02 - Is on 100% disability from the for this diagnosis - [facility] the [facility] - Medications as above (3) Tobacco use disorder 09/02 - Patient chews snuff but declines the offer of a nicotine patch or nicotine gum Discharge / Aftercare Planning Primary Care Physician: Name: did not say Therapist: Name: None Executive Assistant: Name: none Visit Code E&M Code: 52825 Inventory Assets Strengths: Self-determination, love of family Needs: To learn additional healthy coping strategies Risk Factors Assessment Male: Yes : Yes /single/: No Higher / Fall in social status: No Health problems: No Mental Health Diagnoses: Yes Substance use disorders: No Previous attempt: No Previous psychiatric stay: No Hopelessness: No Smoker: Yes (chews tobacco) Protective Factors Assessment Tenriism beliefs: No : Yes Responsible for young children: Yes Employed: No Stable relationships: No Data Vital Signs Last 24 Hrs: Date Time Temp Pulse Resp B/P (MAP) Pulse Ox O2 Delivery O2 Flow Rate FiO2 09/03/17 06:58 36.8 71 16 129/76 64 127/85 Meds Administered Last 24 Hrs: Meds Administered (Past 24Hrs) Medications (Trade) Dose Ordered Sig/Eliseo Route Start Time Stop Time Status Last Admin Dose Admin Lorazepam (Ativan Tab) 0.5 mg NOW STAT SL 09/01/17 23:59 09/02/17 00:01 DC 09/02/17 00:11 0.5 MG Hydroxyzine HCl (Vistaril Tab) 50 mg STK-MED ONCE .ROUTE 09/02/17 02:42 09/02/17 02:43 DC 09/02/17 02:44 50 MG Hydroxyzine HCl (Vistaril Tab) 50 mg HSZ PRN PO 09/02/17 03:00 10/02/17 02:59 09/02/17 21:48 50 MG Escitalopram Oxalate (Lexapro Tab) 10 mg QAM PO 09/03/17 09:00 10/03/17 08:59 09/03/17 10:03 10 MG Escitalopram Oxalate (Lexapro Tab) 5 mg NOW ONCE PO 09/02/17 12:00 09/02/17 12:01 DC 09/02/17 11:57 5 MG
[2017-09-03] MEDS: hydrOXYzine HCL 25 MG TAB PO PRN ×2 (12:10→21:58)
[2017-09-04 07:13] VITALS: BP_SYST 125; BP_SYST 127; BP_DIAS 78; BP_DIAS 84; PULSE 47; PULSE 71; TEMP 36.5
[2017-09-04] MEDS: ESCITALOPRAM OXALATE 10 MG TAB PO SCH (09:25)
[2017-09-04] MEDS ORDERED: ATR25 PO (10:17)
[2017-09-04] MEDS ORDERED: LXP10 PO (10:17)
[2017-09-04] MEDS: hydrOXYzine HCL 25 MG TAB PO PRN (10:21)
--- NOTE | 2017-09-04 10:29 | Discharge Instructions ---
Discharge Information Report Includes Report will include the: Discharge Instructions & Summary Admission Admission Date / Time: Sep 02, 2017 at 01:34 Reason for Admission: Depression Nos Discharge Discharge Diagnosis / Problem: Depression Condition at Discharge: Good Discharge Goals Goal(s): Decrease discomfort, Improve disease control Activity Recommendations Activity Limitations: resume your previous activity . Instructions / Follow-Up Instructions / Follow-Up . SPECIAL CARE INSTRUCTIONS: 1. Follow through with your scheduled aftercare appointments. If unable to keep an appointment, please call to reschedule. 2. Take your medication only as prescribed. Medication should not be changed or stopped without the approval of your doctor. In the event of worsening symptoms or concerns about side effects, contact your doctor immediately. 3. Utilize new healthy coping skills, anger management skills, and stress management skills learned during your hospitalization. Journal feelings and process them with a support person. Identify stressors or situations that may result in relapse, deterioration or inappropriate behaviors and develop a plan to deal with those issues. 4. If your coping skills are ineffective and you are in crisis, contact your outpatient providers for direction. If unable to reach your providers, please call the CAN HELP LINE AT or go to the closest Emergency Room. 5. Avoid alcohol and un-prescribed drugs. 6. You have been provided with the Mental Health Advance Directives Pamphlet for your review. AFTERCARE APPOINTMENTS: * Please call your insurance company prior to your scheduled appointment to confirm your aftercare providers are covered. Take your insurance information to your appointments. . Discharge / Aftercare Planning Primary Care Physician: Name: Dr. Wayne Appointment Notes: As needed Psychiatrist: Name: [facility] is working on scheduling in the [place] [facility] Therapist: Name Of Therapist: Yash Torres, [facility] [id number] Date of Appointment: Sep 07, 2017 Time of Appointment: 7:30am Wireless Operator: Name: none . Follow-Up Care Plan for Follow-Up Care: The patient has an appt at the [facility] for psychiatric care on Thursday. Current Hospital Diet Patient's current hospital diet: Regular Diet Discharge Diet Recommended Diet: Regular Diet Procedures Procedures Performed: No Pending Studies Pending Studies at Discharge: No Medical Emergencies . Who to Call and When: Medical Emergencies: For questions or emergencies related to your hospital stay, please contact the Inpatient Behavioral Health Unit at [phone]. A psychiatric clinical nurse specialist is on-call 16/02 for the Behavioral Health Unit for emergencies At any time you feel your situation is an emergency, you may also call 911 immediately. . Non-Emergent Contact Non-Emergency issues call your: Psychiatrist, Therapist Advance Directives Existing Advance Directive: No Do You Have an Existing Mental: No Existing Living Will: No Existing Power of Counter Tacker: No Advance Directives Info Given: To Pt/S.O. Advance Directives Reason: Declines as Mental Health Visit. Discharge Summary Admission HPI Per the Admitting provider: The patient is a 27-year-old male, not currently in any kind of psychiatric services, who presented acutely yesterday 2 toward emergency department due to complaints of depression, problems with anger. He initially presented, but after having to wait to be seen, left and went to the local [facility] clinic. There he says he was seen by an body shop worker who was helping to get him established with an outpatient appointment but agreed that he needed to be seen acutely and so was sent back to the hospital by ambulance. The patient again became irritable when services were not immediately rendered, threatening to leave again. At that point a 302 petition her statement was issued and he was later committed on a 302 involuntary. He indicates that his problems began back in 2011 when he was discharged from the . He had spent 13 months in [facility], witnessed multiple people being killed in roadside bombs and return from their feeling angry. He denies that he acted his anger out, saying that when he was angry he would walk away or cope with it by using video games. He does say that his anger ruined his first marriage that ended around the time of his discharge from the . He describes that he has always had a "short fuse", always feeling "amped up" but believes his acute issues have only ensued since being discharged from the . He reports that his mood acutely decompensated this week regarding "marital issues". He talks about his relationship with his , he doesn't like to go to the bars as he doesn't drink but his does and so he has given her permission to go out with her friends. He has no concerns that she is being unfaithful, but her habits have been keeping her away from the home for longer periods of time. She started to come home 2 or 3 in the morning and more recently had stayed out all night because she was too drunk to come home. He sat down and had a talk with her, saying she needed to be more responsible. He encouraged her that if she wanted to go out with friends she could but that she should be home by midnight. She has not been able to abide by that. He feels that her ongoing drinking behaviors are a "slap in my face" when he has asked her to stop doing so. They' re arguing escalated yesterday and he says that she gave him an ultimatum to either get help for his anger or she was ending the relationship. It was in response to this ultimatum that he came to the emergency room to get outpatient help established. He is angry today that he is being forced to be hospitalized here on a 302, feeling that it was unfairly done, that he had no plan or intent to follow through and had already started the process of getting treatment outpatient through the [facility]. Today he admits that his mood is depressed. He admits to having suicidal thoughts but again restates that he had no plan or intent. He says his sleep has been "horrible" for years, not going to bed until 2 or 3 in the morning and then sleeping later in the day. His appetite has been "not that well" but he has also been trying to lose weight and has lost 20-25 pounds over the last year. His energy is okay. He describes anxiety as a sensation of his chest tightening and some shortness of breath but says if anybody were to look at him they would never know that he's having an anxiety attack. He denies being a worrier when he was in high school or in his early 20s. He denies ever having had auditory or visual hallucinations. He denies any symptoms of OCD. He admits that his thoughts are always fast paced but denies any other symptoms that would be congruent with a bipolar 1. He uses the word PTSD to describe his emotions. He denies ever having any flashbacks or nightmares but does say that he feels that his anger, anxiety and depression are in the setting of his traumatic experiences. He also finds that he isolates from people describing a "invisible wall" at home that he feels that he can't get past. Hospital Course (1) Major depressive disorder, recurrent severe without psychotic features 2/7 -Restart Lexapro 5 mg today increasing to 10 mg tomorrow - Recommend a family meeting which the patient is currently refusing - The patient is here on a 302. Continue to gather information toward the need for hospitalization - Obtain supplemental information - [facility] - Assist the patient to learn and utilize healthy coping strategies - Encourage exercise 09/03 - - Increase her citalopram to 10 mg daily, and have family meeting with his . [facility]. (2) PTSD (post-traumatic stress disorder) 09/02 - Is on 100% disability from the for this diagnosis - Ensure [facility] the [facility] - Medications as above (3) Tobacco use disorder 09/02 - Patient chews snuff but declines the offer of a nicotine patch or nicotine gum Risk Factors Assessment Male: Yes : Yes /single/: No Higher / Fall in social status: No Health problems: No Mental Health Diagnoses: Yes Substance use disorders: No Previous attempt: No Previous psychiatric stay: No Hopelessness: No Smoker: Yes (chews tobacco) Protective Factors Assessment Adventism beliefs: No : Yes Responsible for young children: Yes Employed: No Stable relationships: No Day of Discharge Assessment COURSE OF HOSPITALIZATION: The patient was on our unit for 2+ days. He was admitted on a 302 involuntary commitment after having presented twice to the emergency department with depression and suicidal ideation, the first time having left before being seen. During his stay, he was started on Lexapro to target mood and anxiety. He was very disturbed about having been committed to our unit and committed to treatment, initially refusing to have a family meeting and dramatically describing that his marriage was over. He eventually relented, did have a family meeting with his which he found to be productive. They both air and some concerns that had been going on in their relationship. They each committed to continuing in the relationship and working on their issues together. The patient was able to join with his peers in groups and other activities and benefited from his time in the hospital. It was confirmed that the guns in his home have been removed in secured elsewhere. He was agreeable to [facility]. 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 He believes that this has significantly contributed to his impaired mood, anxiety and trouble in relationships. He denied any acute suicidal thinking throughout his stay. DAY OF DISCHARGE ASSESSMENT: Today the patient is requesting discharge. He wants to be able to be discharged prior to a sporting event with his stepdaughter that means quite a bit to him. He continues to deny that he was ever acutely suicidal. He is hopeful, forward thinking and will have a very prompt follow-up appointment at the [facility] here in [place] for psychiatric treatment. Today he is casually and appropriately dressed and groomed. Gait and station are within normal limits. Eye contact is good. Affect is smiling. Speech is of normal rate volume and tone. Thoughts are organized, goal directed, and without evidence of thought disorder. Recent and remote memory are intact per conversation. Intelligence is estimated to be average. Insight and judgment are improved over admission. Laboratory Test 09/01/17 16:40 09/01/17 16:44 Urine Color YELLOW Urine Appearance CLEAR Urine pH 5.0 Urine Specific [place] 1.025 Urine Protein TRACE Urine Glucose (UA) NEG Urine Ketones NEG Urine Occult Blood NEG Urine Nitrite NEG Urine Bilirubin NEG Urine Urobilinogen NEG Urine Leukocyte Esterase NEG Urine RBC 0-4 Urine WBC 1-5 Urine Epithelial Cells >30 Urine Bacteria NEG Urine Mucus PRESENT Urine Opiates Screen NEG Urine Methadone, Qualitative NEG Urine Barbiturates NEG Urine Phencyclidine (PCP) Level NEG Ur Amphetamine/Methamphetamine NEG MDMA (Ecstasy) Screen NEG Urine Benzodiazepines Screen NEG Urine Cocaine Metabolite NEG Urine Marijuana (THC) POS Urine Marijuana (THC Carboxy Acid) >2000 White Blood Count 9.84 Red Blood Count 5.56 Hemoglobin 17.2 Hematocrit 47.5 Mean Corpuscular Volume 85.4 Mean Corpuscular Hemoglobin 30.9 Mean Corpuscular Hemoglobin Concent 36.2 Platelet Count 200 Mean Platelet Volume 11.6 Neutrophils (%) (Auto) 71.4 Lymphocytes (%) (Auto) 22.7 Monocytes (%) (Auto) 4.8 Eosinophils (%) (Auto) 0.7 Basophils (%) (Auto) 0.1 Neutrophils # (Auto) 7.03 Lymphocytes # (Auto) 2.23 Monocytes # (Auto) 0.47 Eosinophils # (Auto) 0.07 Basophils # (Auto) 0.01 RDW Standard Deviation 38.8 RDW Coefficient of Variation 12.5 Immature Granulocyte % (Auto) 0.3 Immature Granulocyte # (Auto) 0.03 Sodium Level 139 Potassium Level 3.5 Chloride Level 107 Carbon Dioxide Level 23 Anion Gap 9.0 Blood Urea Nitrogen 12 Creatinine 0.97 Est Creatinine Clear Calc Drug Dose 138.3 Estimated GFR () 121.8 Estimated GFR (Non- 105.1 BUN/Creatinine Ratio 12.0 Random Glucose 89 Calcium Level 9.3 Total Bilirubin 2.6 Direct Bilirubin 0.4 Aspartate Amino Transferase (AST) 17 Alanine Aminotransferase (ALT) 41 Alkaline Phosphatase 66 Troponin I < 0.015 Total Protein 8.1 Albumin 4.8 Thyroid Stimulating Hormone (TSH) 2.170 Ethyl Alcohol mg/dL < 3.0 Total Time Total Time Spent (min): Greater than 30 minutes Total Time Included: examination of the patient, discharge planning, medication reconciliation, communication with other providers Tobacco Cessation at Discharge Smoking Status: Current Some Day Smoker FDA approved Prescription: declined med & out pt counseling
--- NOTE | 2017-09-04 11:34 | Psych Management Progress Note ---
Psychiatry Miscellaneous Date of Service: Sep 04, 2017. Patient seen, MS assessed. Rates mood as 10/10 and excited. He is using his patient handbook to write his safety plan and identifies multiple supports. Staff are confirming with that guns are secure. Aftercare at [facility] available within 3 days of discharge. I personally participated in the medical decision making around his discharge and agree that he no longer meets criteria for involuntary commitment.
== END 2017-09-04 12:50 | disposition home or self-care (01) | DRG 885 ==
LOC: EDBD 16:05 → C.EDA 16:06 → C.MHU 09-02 01:34
PROVIDERS: ADMIT Psychiatry & Neurology Psychiatry; ATTEND Psychiatry & Neurology Psychiatry
DX: F33.2 Major depressive disorder, recurrent severe without psychotic features (principal); R45.851 Suicidal ideations; F43.10 Post-traumatic stress disorder, unspecified; F17.220 Nicotine dependence, chewing tobacco, uncomplicated; Z88.1 Allergy status to other antibiotic agents; Z83.3 Family history of diabetes mellitus; Z82.49 Family history of ischemic heart disease and other diseases of the circulatory system; Z81.8 Family history of other mental and behavioral disorders

== ENCOUNTER 2018-10-29 03:55 | Inpatient (IN) ==
[2018-10-29] MEDS ORDERED: GI COCKTAIL ED USE PO ONE (04:02)
[2018-10-29] MEDS ORDERED: PANTOprazole 80 MG in DEXTROSE 5% 100 ML IV STA (04:11)
[2018-10-29] MEDS ORDERED: SODIUM CHLORIDE 0.9% 1000ML 1,000 ML IV SCH (04:15)
[2018-10-29 04:27] LABS: Basophils # (auto) 0.03 K/uL (0-0.2); Basophils % (auto) 0.2 %; Eosinophils # (auto) 0.16 K/uL (0-0.5); Eosinophils % (auto) 1.3 %; Hematocrit (blood only) 44.2 % (42-52); Hemoglobin 16.1 g/dL (14.0-18.0); Immature Granulocytes # (auto) 0.08 K/uL (0.00-0.02); Immature Granulocytes % (auto) 0.6 %; Lymphocytes # (auto) 4.25 K/uL (1.2-3.4); Lymphocytes % (auto) 34.1 %; Mean Corpuscular Hgb Conc 36.4 g/dL (32-36); Mean Corpuscular Volume 83.7 fL (80-100); Mean Platelet Volume 11.6 fL (7.4-10.4); Monocytes # (auto) 0.84 K/uL (0.11-0.59); Monocytes % (auto) 6.7 %; Neutrophils % (auto) 57.1 %; Platelet Count 242 K/uL (130-400); RDW Coefficient of Variation 12.7 % (11.5-14.5); RDW Standard Deviation 38.1 fL (36.4-46.3); Red Blood Count 5.28 M/uL (4.7-6.1); White Blood Count 12.46 K/uL (4.8-10.8)
[2018-10-29] MEDS ORDERED: ONDANSETRON INJ 2 MG/ML 2 ML VIAL IV STA (04:34)
[2018-10-29] MEDS ORDERED: HYDROmorphone INJ 1 MG/ML SYRINGE IV PRN (04:34)
--- NOTE | 2018-10-29 04:34 | Emergency Department Note ---
History of Present Illness General Chief complaint: Abdominal Pain Stated complaint: STOMACH PAIN,VOMITING BLOOD History of Present Illness Maximum Pain Intensity: 10 This 28-year-old presents to the ER complaining of severe epigastric pain Location: Epigastric Quality: Burning Severity: Severe Duration: Tonight Timing: Started shortly after eating [employer] Context: Pain persisted and patient came in Modifying factors: better with nothing; worse with nothing Patient states his had gastritis and stomach ulcers before. Symptoms feel similar. Patient is on Protonix 40 mg daily. No recent endoscopy. He is seen Dr. Clinton in the past. Last EGD was 4 years ago. Patient denies chest pain, dyspnea, back pain, black or blood in the stool. Patient states he threw up s everal times and the last episode there was some blood in it. No coffee-ground emesis. Patient states his been taking a lot of Advil recently Home Medications Home Medications Medication Instructions Recorded Confirmed Type pantoprazole [Protonix] 40 mg PO DAILY 10/29/18 10/29/18 History Allergies Allergy/AdvReac Type Severity Reaction Status Date / Time bacitracin Allergy Unknown Rash Verified 10/29/18 04:29 neomycin Allergy Unknown Rash Verified 10/29/18 04:29 polymyxin B Allergy Unknown Rash Verified 10/29/18 04:29 Past Med/Surg History Medical History Duodenitis (Chronic) History of duodenal ulcer (Chronic) History of GI bleed (Chronic) "secondary to duodenal ulcer" History of gastritis (Chronic) Major depressive disorder, recurrent severe without psychotic features PTSD (post-traumatic stress disorder) Peptic ulcer disease Tobacco use disorder Surgical History Hx of appendectomy (Chronic) H/O esophagogastroduodenoscopy (Chronic) "01/2015 - esophagitis, gastritis, multiple duodenal ulcers with clean base - NSAID induced etiology" Social History Preferred Language: Danish Feels Safe at Home: Yes Smoking Status: Never smoker Review of Systems All systems reviewed & are unremarkable except as noted in HPI & below Physical Exam Vital Signs Vital Signs - 24 hr 10/29/18 03:59 10/29/18 05:31 10/29/18 05:32 Temperature 36.6 C Temperature Source Oral Sepsis Recent Fever Within 48 Hours No Sepsis New/Unexplained Change in Mental Status No Sepsis Action Taken by Nursing No Action Required Pulse Rate 70 Pulse Rate [Finger] 68 Respiratory Rate 16 18 Respiratory Depth Normal Blood Pressure 177/91 H Blood Pressure [Right Arm] 131/68 Blood Pressure Mean 119 Blood Pressure Mean [Right Arm] 89 Blood Pressure Position [Right Arm] Lying Pulse Oximetry 98 96 96 Oxygen Delivery Method Room Air Room Air Room Air VITALS: Vitals are noted on the nurse's note and reviewed by myself. Vital signs hypertensive. GENERAL: White male pacing the room, in no acute distress, nondiaphoretic, well- developed well-nourished. SKIN: The skin was without rashes, erythema, edema, or bruising. There is no tenting of the skin. Capillary reflex less than 2 seconds. HEAD: Normocephalic atraumatic. EARS: External auditory canals clear, tympanic membranes pearly dudley without erythema or effusion bilaterally. EYES: Pupils equal round and reactive to light and accommodation. Conjunctivae without injection, sclerae without icterus. Extraocular movements intact. NOSE: Patent, turbinates without inflammation or discharge. MOUTH: Mucous membranes moist. Pharynx without erythema or exudate. Uvula midline. Airway patent. Tongue does not deviate. NECK: Supple without nuchal rigidity. No lymphadenopathy. No thyromegaly. Cervical spine is nontender. No JVD. HEART: Regular rate and rhythm LUNGS: Clear to auscultation bilaterally without wheezes, rales or rhonchi. No retractions or accessory muscle use. ABDOMEN: Positive bowel sounds x 4. Normal tympanic percussion. Soft, tender to palpation epigastric region, without masses or organomegaly. Prater sign negative. No guarding or rebound tenderness. No CVA tenderness MUSCULOSKELETAL: No muscle atrophy, erythema, or edema noted. NEURO: Patient was alert and oriented to person place and time. Normal sensation to light and sharp touch. No focal neurological deficits. Course Administered Medications Hydromorphone HCl (Dilaudid) 1 mg IV Q15M PRN PRN Reason: Pain Stop: 11/12/18 04:33 Last Admin: 10/29/18 04:46 Dose: 1 mg Documented by: [id number] Ioversol (Optiray 320 100ml) 93 ml IV ONCE PRN PRN Reason: Interaction Checking Stop: 11/02/18 05:21 Last Admin: 10/29/18 05:23 Dose: 93 ml Documented by: [id number] Discontinued Medications Al Hydrox/Mg Hydrox/Simethicone () 1 dose PO ONE ONE Stop: 10/29/18 04:03 Last Admin: 10/29/18 04:08 Dose: 1 dose Documented by: [id number] Sodium Chloride (Nss 1000ml) 1,000 mls @ 999 mls/hr IV .Q1H1M JUAN Stop: 10/29/18 05:15 Last Infusion: 10/29/18 05:50 Dose: 0 mls/hr Documented by: [id number] Admin: 10/29/18 04:32 Dose: 999 mls/hr Documented by: [id number] Pantoprazole Sodium 80 mg/ (Dextrose) 100 mls @ 400 mls/hr IV ONE STA Stop: 10/29/18 04:25 Last Infusion: 10/29/18 04:43 Dose: 0 mls/hr Documented by: [id number] Infusion: 10/29/18 04:43 Dose: 0 mls/hr Documented by: [id number] Admin: 10/29/18 04:31 Dose: 400 mls/hr Documented by: [id number] Ondansetron HCl (Zofran) 4 mg IV NOW STA Stop: 10/29/18 04:35 Last Admin: 10/29/18 04:46 Dose: 4 mg Documented by: [id number] Medical Decision Making Medical Records Attestation: I reviewed the patient's medical records. Home Medications Current Medication List: was personally reviewed by me Laboratory Data Attestation: I reviewed the patient's lab results. Result diagrams: 10/29/18 04:15 10/29/18 04:15 Lab Results 10/29/18 10/29/18 10/29/18 Range/Units 04:15 04:15 04:15 WBC 12.46 H (4.8-10.8) K/uL RBC 5.28 (4.7-6.1) M/uL Hgb 16.1 (14.0-18.0) g/dL Hct 44.2 (42-52) % MCV 83.7 (80-100) fL MCH 30.5 (25-34) pg MCHC 36.4 H (32-36) g/dL RDW Std Deviation 38.1 (36.4-46.3) fL RDW Coeff of Walker 12.7 (11.5-14.5) % Plt Count 242 (130-400) K/uL MPV 11.6 H (7.4-10.4) fL Immature Gran % (Auto) 0.6 % Neut % (Auto) 57.1 % Lymph % (Auto) 34.1 % [place] % (Auto) 6.7 % Eos % (Auto) 1.3 % Baso % (Auto) 0.2 % Immature Gran # (Auto) 0.08 H (0.00-0.02) K/uL Neut # (Auto) 7.10 H (1.4-6.5) K/uL Lymph # (Auto) 4.25 H (1.2-3.4) K/uL [place] # (Auto) 0.84 H (0.11-0.59) K/uL Eos # (Auto) 0.16 (0-0.5) K/uL Baso # (Auto) 0.03 (0-0.2) K/uL PT 10.6 (9.0-12.0) Seconds INR 1.0 (0.9-1.1) APTT 26.8 (21.0-31.0) Seconds PTT Ratio 1.0 Sodium 141 (136-145) mmol/L Potassium 3.6 (3.5-5.1) mmol/L Chloride 110 H (98-107) mmol/L Carbon Dioxide 22 (21-32) mmol/L Anion Gap 9.0 (3-11) BUN 19 H (7-18) mg/dl Creatinine 1.05 (0.6-1.4) mg/dl Est Cr Clr Drug Dosing 117.3 ml/min Est GFR ( Amer) 109.9 Est GFR (Non-Af Amer) 94.8 BUN/Creatinine Ratio 17.9 (10-20) Glucose 103 H (70-99) mg/dl Calcium 9.3 (8.5-10.1) mg/dl Total Bilirubin 2.0 H (0.2-1) mg/dl AST 15 (15-37) U/L ALT 25 (12-78) U/L Alkaline Phosphatase 77 (45-117) U/L Total Protein 7.9 (6.4-8.2) gm/dl Albumin 4.6 (3.4-5.0) gm/dl Globulin 3.3 (2.5-4.0) gm/dl Albumin/Globulin Ratio 1.4 (0.9-2) Lipase 2018 H (73-393) U/L Imaging Data Attestation: I personally reviewed and interpreted this imaging study as follows: MDM Narrative Prior records/ancillary studies reviewed. Triage Nursing notes reviewed. Additional history obtained from the family. The patient's history was concerning for possible gastrointestinal bleeding. Differential diagnosis: Etiologies such as diverticulosis, AVM, coagulopathy, colitis, inflammatory bowel disease, malignancy, [place]-Andrew tear, esophagitis, peptic ulcer disease, variceal bleed, gastritis, epistaxis, fissure, hemorrhoids, as well as others were entertained. Physical exam: As above. The patients vital signs were reviewed. ER treatment provided: IV fluids, Protonix, GI cocktail On reassessment the patient felt better. Diagnostics interpreted by me: The labs revealed stable H&H. Elevated lipase Imaging studies: CT ABDOMEN & PELVIS With Contrast: 07/10/2015, CT and 09/06/15 gallbladder ultrasound. Query mild thickening of proximal small bowel loops in the left upper abdomen. DDX normal versus enteritis. No free air, free fluid or bowel obstruction. Apparent wall thickening of the distal colon. Likely due to nondistention. Mildly distended gallbladder otherwise appears normal. No biliary dilation. Focal area of bronchiectasis and atelectasis in the lingula, stable Radiologist: Reinaldo Echevarria M.D. Consultation: A consultation was placed with the hospitalist. The case was discussed and diagnostics were reviewed. The patient was evaluated in the ER for further treatment. This appears to be consistent with epigastric pain with elevated lipase. Patient reports hematemesis at home. He had an episode of vomiting here that was negative for this. H&H was stable. Type and screen was sent. Medicine was consulted. He was placed n.p.o. Patient treated with Protonix and Dilaudid.. By the evaluation outlined above emergent etiologies such as esophageal perforation, variceal bleed, coagulopathy, epistaxis, malignancy, inflammatory bowel disease, as well as others were deemed relatively unlikely. The pt informed about the findings as listed above. All questions were answered and pleased with the treatment. Case reviewed with my attending The chart was completed utilizing [employer] Speech voice recognition software. Grammatical errors, random word insertions, pronoun errors, and incomplete sentences are an occassional consequence of this system due to software limitations, ambient noise, and hardware issues. Any formal questions or concerns about the content, text, or information contained within the body of this dictation should be directly addressed to the physician preschool teacher assistant for clarification. Impression & Plan Epigastric abdominal pain, Pancreatitis Discharge Plan Visit Data Chief Complaint: Abdominal Pain Stated Complaint: STOMACH PAIN,VOMITING BLOOD ED Provider: Shameka Miramontes ED Midlevel Provider: Marcia Ayala Discharge Problem: Epigastric abdominal pain, Pancreatitis Patient Disposition: Being Evaluated by Hospitalist Condition: Good Forms Stand Alone Forms: Call Back Authorization, [facility] Prescriptions Prescriptions: No Action pantoprazole [Protonix] 40 mg Tablet,Delayed Release (Dr/Ec) 40 mg PO DAILY RF: 0 Referrals Referrals: PCP,NO [Primary Care Provider] -
[2018-10-29 04:39] LABS: Partial Thromboplastin Time 26.8 Seconds (21.0-31.0); Prothrombin Time 10.6 Seconds (9.0-12.0)
[2018-10-29 04:47] LABS: Albumin Level 4.6 gm/dl (3.4-5.0); BUN Creatinine Ratio 17.9 (10-20); Calcium 9.3 mg/dl (8.5-10.1); Creatinine Clr Calc Pharmacy 117.3 ml/min; Est GFR (African American) 109.9; Est GFR (Non-African American) 94.8; Potassium 3.6 mmol/L (3.5-5.1)
[2018-10-29 04:50] LABS: Albumin Globulin Ratio 1.4 (0.9-2); Globulin 3.3 gm/dl (2.5-4.0); Total Protein 7.9 gm/dl (6.4-8.2)
[2018-10-29] MEDS ORDERED: IOVERSOL 100ml IV PRN (05:22)
--- NOTE | 2018-10-29 06:43 | CT Scan Report ---
CT OF THE ABDOMEN AND PELVIS WITH CONTRAST CLINICAL HISTORY: Severe epigastric pain. Hematemesis. COMPARISON STUDY: CT of the abdomen and pelvis July 10, 2015. Right upper quadrant ultrasound Fe bru2015. TECHNIQUE: Following IV administration of 93 mL of Optiray-320, axial images of the abdomen and pelvi s were obtained from the lung bases to the proximal femurs. Images were reviewed in the axial, sagitt al, and coronal planes. IV contrast was administered without complication. Automated exposure contro l was utilized for the study. A dose lowering technique was utilized adhering to the principles of A MITCH. CT DOSE: 632.01 mGy.cm FINDINGS: Lingular atelectasis with mild bronchiectasis is unchanged. No pneumatosis, free air or por abdiel venous gas is present. The liver, spleen, adrenal glands, kidneys and pancreas are unremarkable. There is mild scarring within the upper pole the left kidney. There is no biliary or pancreatic ducta l dilatation. There is no evidence for a bowel obstruction. The appendix is not identified. Apparent small and large bowel wall thickening is likely due to underdistention. There is no lymphadenopathy. Sensitivity for detection of mucosal lesions is diminished given CT technique. IMPRESSION: No acute process within the abdomen or pelvis. Electronically signed by: Shay Yanez M.D. 10/29/2018 6:42 AM
[2018-10-29] MEDS ORDERED: HYDROmorphone INJ 0.5 MG/0.5 ML SYR IV PRN (07:41)
[2018-10-29] MEDS ORDERED: ACETAMINOPHEN 325 MG TAB PO PRN (07:41)
[2018-10-29] MEDS ORDERED: NITROGLYCERIN SL 0.4 MG/TAB TAB SL PRN (07:41)
[2018-10-29] MEDS ORDERED: ONDANSETRON INJ 2 MG/ML 2 ML VIAL IV PRN (07:41)
[2018-10-29] MEDS ORDERED: ONDANSETRON INJ 2 MG/ML 2 ML VIAL ONE (07:48)
[2018-10-29] MEDS ORDERED: HYDROmorphone INJ 0.5 MG/0.5 ML SYR ONE (07:58)
--- NOTE | 2018-10-29 08:06 | Gastrointestinal Consultation ---
Date of Consultation October 29, 2018 Assessment & Plan (1) Hematemesis/vomiting blood: Mr. Melendez is a 28 yr old male with a hx of ulcer disease who presented with epigastric pain and hematemesis in the setting of NSAID use. He remains hemodynamically stable. Most likely this represents gastric or duodenal ulcers vs. esophagitis, gastritis or duodenitis. Plan: Agree with NPO and pantoprazole drip. EGD this afternoon by Dr. Paz. Further recommendations to follow the EGD. Present on Admission?: Yes Supervising Physician Co-Signing Physician Notes I saw and evaluated the patient. He presented with several episodes of hematemesis which occurred yesterday evening. The patient did recall having several episodes of emesis prior to this. He has a history of peptic ulcer disease and last had an upper endoscopy several years ago. Physical examination No Obvious distress No abdominal tenderness Impression: Patient with history of hematemesis suggestive of a [place]-Andrew tear. We will proceed with upper endoscopy today. We discussed the risks and benefits to include bleeding perforation, aspiration and need for follow-up studies. Recommendations Continue Protonix as you are doing Upper endoscopy today Avoid use of nonsteroidals History of Present Illness Reason for Consultation: Epigastric pain, hematemesis Requesting Physician: Dr. Fuentes Attending Physician: Dennise Phipps MD History of Present Illness Mr. Francisco Melendez is a 28 yr old male with a hx of depression, PTSD, smoking and prior hx of ulcer disease presented to the ED this morning for hematemesis. He reports that he has shoulder pain and takes one dose of Aleve daily, retirement, for years. He has had intermittent epigastric pain for a few weeks. This morning at 2 AM he was awakened by epigastric pain and nausea as well as diffuse abdominal cramping. The cramping was relieved by passing an urgent brown BM. He had several episodes of vomiting in quick succession and brought up liquid in the first two, then some partially digested food and blood (estimated about 1/2 to 2/3 cup of blood) which was bright red with a few small dark red clots. Hb on arrival was 16.1 (down from 17 in Aug), and a few hrs later 14.7.BUN is 19. CT with IV, no oral contrast and GBUS were normal. Since arrival, he had a few more similar episodes of hematemesis in the ED, though smaller volume but no further BMs and no emesis since being brought up to 4th floor. He appears well, is hemodynamically stable and was sleeping when I entered the room. On exam, he is moderately tender over the epigastric area. A pantoprazole drip is running. Prior endoscopy includes: EGD 2012 with duodenal ulcer EGD by Dr. Paz 01/2015: gastritis, alphus ulcers, in the gastric antrum. EGD by Dr. Her 06/2015 superficial gastric ulcers. Allergies Allergy/AdvReac Type Severity Reaction Status Date / Time bacitracin Allergy Unknown Rash Verified 10/29/18 04:29 neomycin Allergy Unknown Rash Verified 10/29/18 04:29 polymyxin B Allergy Unknown Rash Verified 10/29/18 04:29 Home Medications Home Medications Medication Instructions Recorded Confirmed Type escitalopram oxalate [Lexapro] 20 mg PO DAILY 10/29/18 10/29/18 History pantoprazole [Protonix] 40 mg PO DAILY 10/29/18 10/29/18 History Patient History Medical History Duodenitis (Chronic) History of duodenal ulcer (Chronic) History of GI bleed (Chronic) "secondary to duodenal ulcer" History of gastritis (Chronic) Major depressive disorder, recurrent severe without psychotic features PTSD (post-traumatic stress disorder) Peptic ulcer disease Tobacco use disorder Surgical History Hx of appendectomy (Chronic) H/O esophagogastroduodenoscopy (Chronic) "01/2015 - esophagitis, gastritis, multiple duodenal ulcers with clean base - NSAID induced etiology" Social History Preferred Language: Amharic Communication Ability: Effective 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 Eyes: no vision changes, no eye redness or pain Respiratory: No SOB, no cough Cardiovascular: No irregular heartbeats or chest pain Abdomen: + epigastric abdominal pain, nausea, vomiting, hematemesis; no bloating constipation or diarrhea; no melena or hematochezia Ext: No edema Hem: No excessive bruising/bleeding Physical Exam Vital Signs (Past 24 Hours): Last Vital Signs Temp 36.6 C 10/29/18 03:59 Pulse 59 L 10/29/18 07:12 Resp 19 10/29/18 07:12 BP 141/82 H 10/29/18 07:12 Pulse Ox 98 10/29/18 07:12 Constitutional: WD/WN, vitals as above Eyes: PERRL, conjunctivae normal, anicteric sclerae ENMT: external ear and nose normal, oropharynx normal Neck: trachea midline, no thyromegaly Respiratory: normal respiratory effort, lungs clear to auscultation Cardiovascular: RRR, no murmur, no edema Gastrointestinal (Abdomen): Inspection/Auscultation: abdomen normal to inspection; abdomen not distended Percussion/Palpation: + abdomen tender (epigastric) and abdomen soft Musculoskeletal: no cyanosis or clubbing, extremities motor strength 5/5 Skin: no rashes, warm and dry Neurologic: PERRL, EOMI, accommodation nl, no face palsy, no dysarthria Psychiatric: A+Ox3, euthymic affect Lymphatic: no cervical or axillary lymphadenopathy Results & Data Diagnostic Findings RUQ Ultrasound 10/29: Unremarkable sonographic assessment of the right upper quad rant. No gallstones are identified. CT with IV, no oral contrast 4/5: No acute process within the abdomen or pelvis. Medications Administered Protonix drip
[2018-10-29] MEDS: SODIUM CHLORIDE 0.9% 1000ML 1,000 ML IV SCH ×2 (08:21→13:51)
[2018-10-29] MEDS: PANTOprazole 40 MG in DEXTROSE 5% 100 ML IV SCH ×2 (08:21→13:51)
[2018-10-29 08:30] LABS: Hematocrit (blood only) 40.8 % (42-52); Hemoglobin 14.7 g/dL (14.0-18.0)
--- NOTE | 2018-10-29 08:36 | History and Physical Report ---
DATE OF ADMISSION: 10/29/2018 CHIEF COMPLAINT: Hematemesis, abdominal pain. HISTORY OF PRESENT ILLNESS: This 28-year-old male with past medical history significant for posttraumatic stress disorder, depression, history of gastric ulcers in the past, chronic shoulder pain and knee pain, presents with severe abdominal pain and hematemesis. The patient says he awoke in the middle of midnight and went to bathroom, where he felt nauseous and had an episode of vomiting. He vomited a half a cup of blood and the abdominal pain is in the epigastric region, severe in nature which prompted him to come to the ER. The patient has a history of gastric ulcer and GI bleed in the past. In the ER, he was given Protonix and GI cocktail and he had another episode vomiting which only brought up the GI cocktail. There was no blood in it. He was given Dilaudid and the pain is better controlled now. The patient says he takes Aleve a couple of times a week for his chronic shoulder pain. Currently, resting comfortable and hemodynamically stable. Denies any headache, no blurred vision, no earache, no runny nose, no sore throat. No difficulty swallowing. No cough, no chest pain or shortness of breath. Normal bowel and bladder movements. No hematuria, no melena or hematochezia. No swelling of the legs. No rash. No easy bruising or easy bleeding. ALLERGIES: NEOSPORIN. PAST MEDICAL HISTORY: As mentioned above. PAST SURGICAL HISTORY: EGDs, appendectomy. MEDICATIONS: The patient is on Lexapro 20 mg p.o. daily, Protonix 40 mg p.o. daily. FAMILY HISTORY: Significant for mother who had a stroke and mental disorder. SOCIAL HISTORY: Smokes cigarettes. Denies alcohol use. Smokes marijuana. REVIEW OF SYSTEMS: As per HPI. Rest of review of systems is negative. PHYSICAL EXAMINATION: GENERAL: The patient is of moderate build, not in acute distress. VITAL SIGNS: Temperature 36.6, pulse 68, respiratory rate 18, blood pressure 131/68, oxygen 96% room air. HEENT: No pallor, no icterus. Pupils equal, round and react to light. NECK: No JVD, no neck masses, no carotid bruits. CARDIOVASCULAR: S1, S2 heard, regular rate and rhythm, no murmur, no gallop. RESPIRATORY SYSTEM: Normal AP diameter. No accessory muscle use. No wheezing, no crackles. ABDOMEN: Soft, bowel sounds present. Epigastric tenderness present. Mild guarding, no rigidity. No distention. CENTRAL NERVOUS SYSTEM: Cranial nerves II through XII grossly intact, nonfocal. EXTREMITIES: No edema, no erythema. LABORATORY DATA: WBC 12.4, hemoglobin 16.1, hematocrit 44.2, platelets 242. PT 10.6, INR 1, APTT 26.8. Sodium 141, potassium 3.6, chloride 110, bicarbonate 22, BUN 19, creatinine 1.05. Serum glucose 103, calcium 9.3, total bilirubin 2, AST 15, ALT 25, alkaline phosphatase 77, lipase 2000. CT of the abdomen and pelvis, official reading pending. ASSESSMENT AND PLAN: A 28-year-old male presents with abdominal pain and hematemesis. 1. Abdominal pain and hematemesis, history of GI bleed in the past, NSAID induced. The patient is still taking NSAIDs couple of times a week for his chronic shoulder pain, had an episode today in the middle of the night when he woke up with the epigastric abdominal pain and vomited a half a cup of blood.Had another episode of vomiting in the ER, but there was no blood in it. We will keep the patient n.p.o., IV fluids, PPI drip, H and H q. 6 hours. Currently, hemoglobin is stable. Monitor in the med/surg tele. GI consult for further evaluation and recommendations. 2. Elevated lipase, possible pancreatitis. CAT scan showing no pancreatitis, but distended gallbladder, official read pending. We will also get a gallbladder ultrasound. Mild elevation in bilirubin. We will follow the LFTs. Aggressive IV fluids, pain control, n.p.o. Repeat lipase in a.m. 3. History of depression and posttraumatic stress disorder, anxiety, on Lexapro. 4. Deep venous thrombosis prophylaxis. SCDs for now. 5. Disposition: Admit to med/surg tele. Level 1 full code. MTDD
[2018-10-29] MEDS ORDERED: ESCITALOPRAM OXALATE 20 MG TAB PO SCH (09:00)
[2018-10-29 09:30] LABS: Appearance Urine Clear (Clear); Bilirubin Urine Negative (Negative); Blood Urine Negative (Negative); Color Urine Yellow; Glucose Urine UA Negative (Negative); Ketones Urine Negative (Negative); Leukocyte Esterase Urine Negative (Negative); Nitrite Urine Negative (Negative); Protein Urine Negative (Negative); Specific Gravity Urine > 1.045 (1.000-1.030); Urobilinogen Urine Negative (Negative); pH Urine 8.5 (4.5-7.5)
--- NOTE | 2018-10-29 09:33 | Ultrasound Report ---
ULTRASOUND RIGHT UPPER QUADRANT ABDOMEN CLINICAL HISTORY: Epigastric abdominal pain. COMPARISON STUDY: Abdominal CT dated 10/29/2018. TECHNIQUE: Real-time, grayscale, and color flow sonography of the right upper quadrant of the abdomen was performed. Images are reviewed in the transverse and longitudinal planes. FINDINGS: Liver: The liver is normal in size and echotexture. There is no intrahepatic biliary ductal dilatatio n. The main portal vein is patent. Gallbladder: The gallbladder is normal in appearance. No gallstones are identified. There is no gallb ladder wall thickening or pericholecystic fluid. A sonographic Prater's sign is reportedly absent. Th e common bile duct measures up to 0.5 cm in diameter. Pancreas: Visualized portions of the pancreatic head and body are normal in appearance. The splenic v ein is patent. Right kidney: Survey images of the right kidney demonstrate normal size and echotexture. There is no hydronephrosis. A 1.1 cm cyst is noted in the interpolar region. Ascites: None. IMPRESSION: Unremarkable sonographic assessment of the right upper quadrant. No gallstones are identi fied. Electronically signed by: Albert De La Fuente M.D. 10/29/2018 9:32 AM
--- NOTE | 2018-10-29 11:38 | Anesthesiology Consultation ---
Date of Service October 29, 2018 Assessment & Plan (1) Encounter for pre-operative examination: Chart Review Chart Review: Acceptable Risk for Surgery and Patient NOT seen in Pre Admission Testing Consults Requested none ASA ASA2 Proposed Anesthesia Anesthesia Type: MAC NPO Date Last Intake of Fluids: 10/28/18 Time Last Intake of Fluids: 20:00 Date Last Intake of Solids: 10/28/18 Time Last Intake of Solids: 20:00 History Surgery Operation Date: 10/29/18 13:00 Proposed Procedures p Esophagogastroduodenoscopy Dr Jackson Paz Height/Weight Height: 5 ft 8 in Weight: 98.2 kg Allergies Allergy/AdvReac Type Severity Reaction Status Date / Time bacitracin Allergy Unknown Rash Verified 10/29/18 04:29 neomycin Allergy Unknown Rash Verified 10/29/18 04:29 polymyxin B Allergy Unknown Rash Verified 10/29/18 04:29 Medications Home Medications Medication Instructions Recorded Confirmed Last Taken escitalopram oxalate [Lexapro] 20 mg PO DAILY 10/29/18 10/29/18 Unknown pantoprazole [Protonix] 40 mg PO DAILY 10/29/18 10/29/18 Unknown Active Medications Generic Name Dose Route Start Last Admin Trade Name Freq PRN Reason Stop Dose Admin Escitalopram Oxalate 20 mg 10/29/18 09:00 10/29/18 08:21 Lexapro PO 11/28/18 08:59 20 mg DAILY JUAN Administration Sodium Chloride 1,000 mls @ 200 mls/hr 10/29/18 07:41 10/29/18 08:21 Nss 1000ml IV 11/28/18 07:40 200 mls/hr .Q5H JUAN Administration Pantoprazole Sodium 40 mg/ 100 mls @ 20 mls/hr 10/29/18 09:00 10/29/18 08:21 Dextrose IV 11/28/18 08:59 8 mg/hr Q5H JUAN 20 mls/hr Administration 8 MG/HR Past Medical History Medical History Duodenitis (Chronic) History of duodenal ulcer (Chronic) History of GI bleed (Chronic) "secondary to duodenal ulcer" History of gastritis (Chronic) Major depressive disorder, recurrent severe without psychotic features PTSD (post-traumatic stress disorder) Peptic ulcer disease Tobacco use disorder Past Surgical History Surgical History Hx of appendectomy (Chronic) H/O esophagogastroduodenoscopy (Chronic) "01/2015 - esophagitis, gastritis, multiple duodenal ulcers with clean base - NSAID induced etiology" Social History Smoking Status: Unknown if ever smoked tobacco type: smokeless tobacco Do You Dip or Chew Tobacco: Yes Hx Alcohol Use: No Hx Substance Use: No Physical Exam Vital Signs Last Vital Signs Temp 36.7 C 10/29/18 11:27 Pulse 46 L 10/29/18 11:27 Resp 18 10/29/18 11:27 BP 117/77 10/29/18 11:27 Pulse Ox 100 10/29/18 11:27 Testing Laboratory Results 10/29/18 08:08 10/29/18 04:15 Blood Type A Negative 10/29/18 04:15 Antibody Screen NEGATIVE 10/29/18 04:15 PT 10.6 Seconds (9.0-12.0) 10/29/18 04:15 INR 1.0 (0.9-1.1) 10/29/18 04:15 APTT 26.8 Seconds (21.0-31.0) 10/29/18 04:15 Urine Color Yellow 10/29/18 Unknown Urine Appearance Clear (Clear) 10/29/18 Unknown Urine pH 8.5 (4.5-7.5) H 10/29/18 Unknown Ur Specific Rodney > 1.045 (1.000-1.030) H 10/29/18 Unknown Urine Protein Negative (Negative) 10/29/18 Unknown Urine Glucose (UA) Negative (Negative) 10/29/18 Unknown Urine Ketones Negative (Negative) 10/29/18 Unknown Urine Nitrite Negative (Negative) 10/29/18 Unknown Ur Leukocyte Esterase Negative (Negative) 10/29/18 Unknown
[2018-10-29] MEDS ORDERED: ePHEDrine sulfate 50 MG/ML AMP IV PRN (11:43)
[2018-10-29] MEDS ORDERED: ATROPINE SULFATE 0.1 MG/ML 10ML SYR IV PRN (11:43)
[2018-10-29] MEDS ORDERED: PROPOFOL IV EMULSION 10 MG/ML 20 ML VIAL IV ONE (12:01)
[2018-10-29] MEDS ORDERED: LIDOCAINE HCL 2% 2 ML VIAL/AMP(20MG/ML) INFIL ONE (12:01)
--- NOTE | 2018-10-29 12:17 | GI REPORT ---
Patient Name: Brandan Melendez Procedure Date: 10/29/2018 12:02 PM Date of : 1990 Admit Type: Inpatient Age: 28 Gender: Male Attending MD: Yunior Paz DO Procedure: Upper GI endoscopy Providers: Yunior Paz DO Referring MD: Jerel Fuller Indications: Hematemesis Medicines: Monitored Anesthesia Care Complications: No immediate complications. Estimated blood loss: Minimal. Estimated Blood Loss: Estimated blood loss was minimal. Procedure: Pre-Anesthesia Assessment: - Prior to the procedure, a History and Physical was performed, and patient medications, allergies and sensitivities were reviewed. The patient's tolerance of previous anesthesia was reviewed. - Patient identification and proposed procedure were verified prior to the procedure by the physician, the nurse and the ring making machine operator. The procedure was verified in the procedure room. - The risks and benefits of the procedure and the sedation options and risks were discussed with the patient. All questions were answered and informed consent was obtained. - Pre-procedure physical examination revealed no contraindications to sedation. - ASA Grade Assessment: II - A patient with mild systemic disease. - After reviewing the risks and benefits, the patient was deemed in satisfactory condition to undergo the procedure. - The anesthesia plan was to use monitored anesthesia care (MAC). - Immediately prior to administration of medications, the patient was re-assessed for adequacy to receive sedatives. - The heart rate, respiratory rate, oxygen saturations, blood pressure, adequacy of pulmonary ventilation, and response to care were monitored throughout the procedure. - The physical status of the patient was re-assessed after the procedure. After obtaining informed consent, the endoscope was passed under direct vision. Throughout the procedure, the patient's blood pressure, pulse, and oxygen saturations were monitored continuously. The Endoscope was introduced through the mouth, and advanced to the third part of duodenum. The upper GI endoscopy was accomplished without difficulty. The patient tolerated the procedure well. Findings: The examined esophagus was normal. The Z-line was regular and was found 39 cm from the incisors. The entire examined stomach was normal. The examined duodenum was normal. Impression: - Normal esophagus. - Z-line regular, 39 cm from the incisors. - Normal stomach. - Normal examined duodenum. - No specimens collected. Recommendation: - Return patient to [facility] care. - Advance diet as tolerated. - Use Protonix (pantoprazole) 40 mg PO daily. - Hematemesis likely related to a [place] Andrew tear. - May consider D/C today if he tolerates a diet. Yunior Paz D.O. Yunior Paz, 10/29/2018 12:16:59 PM This report has been signed electronically. Note Initiated On: 10/29/2018 12:02 PM Number of Addenda: 0 I attest to the content of the Intraoperative Record and orders documented therein, exceptions below {[id number]}
[2018-10-29 14:11] LABS: Hematocrit (blood only) 39.8 % (42-52); Hemoglobin 13.7 g/dL (14.0-18.0)
--- NOTE | 2018-10-29 15:00 | Communication Note ---
Date of Service: October 29, 2018 Pt also with lipase 2000, though imaging w/o pancreatitis and pt w/o typical pancreatitis symptoms of tachycardia, continued persistent severe upper abdomen pain. EGD normal Cause of vomiting and pain may have been a mild pancreatitis. Pt tells me that he "occasionally" smokes marijuana. The pain/vomiting could be caused by cannabinoid induced hyperemesis. Also marijuana can cause pancreatitis. Pt wants to go home. I informed him that he needs to be able to be abstaining from pain medication and tolerating eating before going home. Still, he is sure that he wants DC now. I informed Dr. Phipps of his wishes. Pt should get repeat lipase, in a week or so. If remains elevated then would recommend EUS. Recommendations: Avoid use of drugs, marijuana and nonsteroidals
--- NOTE | 2018-10-29 15:15 | Anesthesiology Progress Note ---
Date of Service October 29, 2018 Anesthesia Post Procedure Vital Signs Vital Signs: Temp Pulse Pulse Resp BP BP Pulse Ox 10/29/18 12:50 49 L 18 110/57 L 99 10/29/18 12:35 48 L 18 106/57 L 99 10/29/18 12:20 68 18 108/34 L 98 10/29/18 11:27 36.7 C 46 L 18 117/77 100 10/29/18 08:00 36.5 C 60 66 18 121/57 L 99 10/29/18 07:12 59 L 19 141/82 H 98 10/29/18 05:32 96 10/29/18 05:31 68 18 131/68 96 10/29/18 03:59 36.6 C 70 16 177/91 H 98 Pain Intensity Abdomen: Pain Intensity: 6 Notes Mental Status: alert / awake / arousable and participated in evaluation Nausea / Vomiting: adequately controlled Pain: adequately controlled Airway Patency, RR, SpO2: stable & adequate BP & HR: stable & adequate Hydration State: stable & adequate
--- NOTE | 2018-10-29 16:01 | Discharge Summary ---
Date of Service October 29, 2018 Principal Diagnosis Nausea vomiting/blood in vomit/possible [place]-Andrew tear/no evidence of GI bleed Discharge Exam Constitutional WD/WN, vitals as above Eyes PERRL, conjunctivae normal, anicteric sclerae ENMT external ear and nose normal, oropharynx normal Mouth: no TMJ abnormality Mallampati Class: II Neck trachea midline, no thyromegaly normal visual inspection Respiratory normal respiratory effort, lungs clear to auscultation normal respiratory effort Auscultation: lungs clear to auscultation bilaterally Cardiovascular RRR, no murmur, no edema Rate/Rhythm: regular rate and regular rhythm Heart Sounds: no murmur Gastrointestinal (Abdomen) Inspection/Auscultation: abdomen normal to inspection; abdomen not distended Percussion/Palpation: + abdomen tender (epigastric) and abdomen soft Musculoskeletal no cyanosis or clubbing, extremities motor strength 5/5 Skin no rashes, warm and dry Neurologic PERRL, EOMI, accommodation nl, no face palsy, no dysarthria moves all extremities Psychiatric A+Ox3, euthymic affect Orientation: alert and oriented x 3 Lymphatic no cervical or axillary lymphadenopathy Discharge Data Allergies Allergy/AdvReac Type Severity Reaction Status Date / Time bacitracin Allergy Unknown Rash Verified 10/29/18 04:29 neomycin Allergy Unknown Rash Verified 10/29/18 04:29 polymyxin B Allergy Unknown Rash Verified 10/29/18 04:29 Consultations 10/29/18 05:46 ED Decision to Admit Stat 10/29/18 08:00 Consult Gastroenterology Routine Procedures Performed Operation Date: 10/29/18 13:00 Actual Procedures p Esophagogastroduodenoscopy - Yunior Paz Ordered Studies 10/29/18 04:11 CT abd pelvis IV con only Stat 10/29/18 07:41 US gallbladder Urgent Hospital Course (1) Hematemesis/vomiting blood: Mr. Melendez is a 28 yr old male with a hx of ulcer disease who presented with epigastric pain and hematemesis in the setting of NSAID use. Patient remained hemodynamically stable, H&H does not show any acute drop Was treated with IV Protonix drip /Monitored in telemetry GI consulted, appreciate input Status post EGD today, shows no evidence of gastric ulcer, no gastric inflammation or erosion Possible cause of coffee-ground emesis Is due to [place]-Andrew tear Diet advanced tolerating well Protonix changed to p.o. twice daily, Stable to be discharged home today Patient does not have any primary care physician, counseled to establish care with family physician either in the [place] or outside [place] system for continued follow-up Total Time Total Time Spent Total Time Spent (In Minutes): Approximately 40 minutes Total Time Includes: Examination of the Patient, Discharge Planning, Medication Reconciliation and Communication With Other Providers Discharge Plan Discharge Items Patient Disposition: Home - Self-Care Reason For Visit: ABDOMINAL PAIN, HEMATEMESIS Discharge Diagnosis: NAUSEA /VOMITING /BLOOD IN VOMIT Condition: Good Discharge Goals: Decrease discomfort Activity: Resume your previous activity Non-emergency contact: Primary Care Provider Call non-emergency contact if: you have any medication questions Follow-up/Referrals: PCP,NO [Primary Care Provider] - Diet: Regular Addtl Provider Instructions: PLEASE ESTABLISH CARE WITH FAMILY PHYSICIAN FOR FOLLOW UP AND CONTINUED CARE AVOID SPICES IN FOOD HAVE SMALL FREQUENT MEALS /INSTEAD FOR THREE BIG MEALS A DAY , WHICH HELPS TO REDUCE ACID REFLUX Prescriptions: New ondansetron HCl [Zofran] 4 mg tablet 4 mg PO Q8H PRN (Reason: nausea and vomiting) 30 Days Qty: 90 RF: 3 Continued pantoprazole [Protonix] 40 mg Tablet,Delayed Release (Dr/Ec) 40 mg PO DAILY RF: 0 escitalopram oxalate [Lexapro] 20 mg Tablet 20 mg PO DAILY RF: 0 Stand-Alone Forms: Call Back Authorization, [facility] Discharge Orders: Discharge Order (Routine); Ordered 10/29/18 Ordered By: Dennise Phipps Admission Data Admit Date/Time: 10/29/18 06:24 Attending Provider: Dennise Phipps Admit Provider: Ras Fuentes Primary Care Provider: PCP,NO Other Providers: Ras Fuentes ; Aron Nuñez ; Gavino Paredes ; Debo Marroquin ; Niels Fuller ; Yunior Paz ; Gerri Guerra ; Bettie Copeland ; Mio Conley ; Jameel Castorena ; Yasmine Kate ; Lakia Her ; Aretha Metcalf ; Janice Greenwood ; Abdulsamad,Molham Service: Telemetry Medical Other Interventions: Discharge Summary Assessment (RN) Last Done: 10/29/18 16:17 DC Date/Time DO NOT enter until pt leaves facility: 10/29/18 16:40
== END 2018-10-29 16:40 | disposition home or self-care (01) | DRG 379 ==
LOC: ED 03:55 → 2W 06:24